=== PATIENT | female | born 1970 | race Caucasian/White ===

== ENCOUNTER 2017-07-29 22:17 | Inpatient (IN) | payer OTHER, MEDICARE ==
[2017-07-29] MEDS ORDERED: IPRATROPIUM/ALBUTEROL 0.5-2.5 MG/3 ML AMPUL NEB ONE ×3 (22:33→23:35)
[2017-07-29] MEDS ORDERED: METHYLPREDNISOLONE INJ 125 MG/2 ML SDV ONE (22:45)
[2017-07-29] MEDS ORDERED: NORMAL SALINE 1000 ML 1,000 ML IV PRN (22:49)
--- NOTE | 2017-07-29 22:56 | ER Document Report ---
ED Respiratory Problem - General Chief Complaint: Breathing Difficulty Stated Complaint: DIFFICULTY BREATHING Time Seen by Provider: 07/29/17 22:48 Mode of Arrival: Ambulatory Information source: Patient Notes: 47 years old female with a history of COPD, renal failure, presents today with difficulty in breathing progressively increased over the last 2 days, to the point that she could not take a good breath today and wheezing diffusely. Each time she lays down the breathing difficulty increase in intensity. Denied any fever chills or productive cough. Denies any other constitutional symptoms. TRAVEL OUTSIDE OF THE [place] IN LAST 30 DAYS: No - Related Data Allergies/Adverse Reactions: Sulfa (Sulfonamide Antibiotics) Allergy (Verified 07/29/17 22:20) Home Medications: Current Home Medications Albuterol Sulfate [Ventolin Hfa] 2 puff IH Q6HP PRN 07/30/17 [History] Amitriptyline HCl [Elavil 25 mg Tablet] 50 mg PO DAILY 07/30/17 [History] Clonazepam [Klonopin] 1 mg PO DAILY 07/30/17 [History] Duloxetine HCl [Cymbalta] 60 mg PO DAILY 07/30/17 [History] Gabapentin [Neurontin 300 mg Capsule] 300 mg PO Q8 07/30/17 [History] Mometasone/Formoterol [Dulera 200 Mcg/5 Mcg Inhaler] 2 puff IH BID 07/30/17 [ History] Montelukast Sodium [Singulair 10 mg Tablet] 10 mg PO QPM 07/30/17 [History] Topiramate [Topamax] 50 mg PO TID 07/30/17 [History] Past Medical History - General Information source: Patient - Social History Smoking Status: Smoker,Current Status Unk Family History: Reviewed & Not Pertinent Review of Systems - Review of Systems Notes: REVIEW OF SYSTEMS: CONSTITUTIONAL : Denies fever, chills, or sweats. Denies recent illness. EENT: Denies eye, ear, throat, or mouth pain or symptoms. Denies nasal or sinus congestion or discharge. Denies throat, tongue, or mouth swelling or difficulty swallowing. CARDIOVASCULAR: Denies chest pain. Denies palpitations or racing or irregular heart beat. Denies ankle edema. RESPIRATORY: As per history of complain GASTROINTESTINAL: Denies abdominal pain or distention. Denies nausea, vomiting , or diarrhea. Denies blood in vomitus, stools, or per rectum. Denies black, tarry stools. Denies constipation. GENITOURINARY: Denies difficulty urinating, painful urination, burning, frequency, blood in urine, or discharge. FEMALE GENITOURINARY: Denies vaginal bleeding, heavy or abnormal periods, irregular periods. Denies vaginal discharge or odor. MUSCULOSKELETAL: Denies back or neck pain or stiffness. Denies joint pain or swelling. SKIN: Denies rash, lesions or sores. HEMATOLOGIC : Denies easy bruising or bleeding. LYMPHATIC: Denies swollen, enlarged glands. NEUROLOGICAL: Denies confusion or altered mental status. Denies passing out or loss of consciousness. Denies dizziness or lightheadedness. Denies headache. Denies weakness or paralysis or loss of use of either side. Denies problems with gait or speech. Denies sensory loss, numbness, or tingling. Denies seizures. PSYCHIATRIC: Denies anxiety or stress. Denies depression, suicidal ideation, or homicidal ideation. ALL OTHER SYSTEMS REVIEWED AND NEGATIVE. PHYSICAL EXAMINATION: GENERAL: Seems to be in mild to moderate respiratory difficulty HEAD: Atraumatic, normocephalic. EYES: Pupils equal round and reactive to light, extraocular movements intact, conjunctiva are normal. ENT: Nares patent, oropharynx clear without exudates. Moist mucous membranes. NECK: Normal range of motion, supple without lymphadenopathy LUNGS: Bilaterally decreased breath sounds with diffuse expiratory wheeze no rales no other adventitial sounds HEART: Regular rate and rhythm without murmurs ABDOMEN: Soft, nontender, nondistended abdomen. No guarding, no rebound. No masses appreciated. Female : deferred Musculoskeletal: Normal range of motion, no pitting or edema. No cyanosis. NEUROLOGICAL: Cranial nerves grossly intact. Normal speech, normal gait. Normal sensory, motor exams PSYCH: Normal mood, normal affect. SKIN: Warm, Dry, normal turgor, no rashes or lesions noted. Dictation was performed using [employer] voice recognition software Physical Exam - Vital signs Vitals: Resp Pulse Ox 26 H 91 L 07/29/17 22:35 07/29/17 22:35 Course - Re-evaluation Re-evalutation: 07/30/17 00:28 Patient was informed of all the results, feeling little better than what she came in with. Dr. devlin was called and case was discussed with - Vital Signs Vital signs: Temp Pulse Resp BP Pulse Ox 97.5 F 94 20 117/65 96 07/31/17 15:27 07/31/17 16:34 07/31/17 16:34 07/31/17 15:27 07/31/17 16:34 - Laboratory Result Diagrams: 07/30/17 05:40 07/30/17 05:40 Laboratory results interpreted by me: 07/29/17 07/29/17 07/29/17 22:45 22:45 22:55 WBC 13.8 H Lymphocytes % 12.9 L Eosinophils % 6.2 H Absolute Neutrophils 10.3 H Absolute Eosinophils 0.8 H ABG pO2 53.3 L ABG O2 Saturation 87.7 L Est GFR (Non-Af Amer) 51 L - Diagnostic Test Radiology reviewed: Reports reviewed - Reported by radiologist as normal - EKG Interpretation by Me EKG shows normal: Sinus rhythm - 95 bpm normal axis no acute ST elevation ST depression T-wave inversion noted. Discharge - Discharge Clinical Impression: Acute exacerbation of COPD with asthma, Hypoxia Condition: Fair Disposition: ADMITTED INPATIENT Admitting Provider: [facility] Admitted: Telemetry
[2017-07-29 23:02] LABS: ABSOLUTE BASOPHILS # (AUTO) 0.1 10^3/uL (0.0-0.2); ABSOLUTE EOSINOPHILS # (AUTO) 0.8 10^3/uL (0.0-0.6); ABSOLUTE LYMPHOCYTES (AUTO) 1.8 10^3/uL (0.5-4.7); ABSOLUTE MONOCYTES (AUTO) 0.8 10^3/uL (0.1-1.4); ABSOLUTE NEUT (AUTO) 10.3 10^3/uL (1.7-8.2); BASOPHILS % (AUTO) 0.6 % (0-2); EOSINOPHILS % (AUTO) 6.2 % (0-6); HEMATOCRIT 44.4 % (36.0-47.0); LYMPHOCYTES % (AUTO) 12.9 % (13-45); MEAN CORPUSCULAR HEMOGLOBIN 31.9 pg (27.0-33.4); MEAN CORPUSCULAR HGB CONC 33.7 g/dL (32.0-36.0); MEAN CORPUSCULAR VOLUME 95 fl (80-97); MONOCYTES % (AUTO) 5.9 % (3-13); PLATELET COUNT 299 10^3/uL (150-450); RED BLOOD COUNT 4.69 10^6/uL (3.72-5.28); RED CELL DISTRIBUTION WIDTH 13.6 % (11.5-14.0); SEGMENTED NEUTROPHILS % (AUTO) 74.4 % (42-78); TOTAL CELLS COUNTED % (AUTO) 100 %; WHITE BLOOD COUNT 13.8 10^3/uL (4.0-10.5)
[2017-07-29 23:20] LABS: ALANINE AMINOTRANSFERASE 30 U/L (9-52); ALBUMIN 4.6 g/dL (3.5-5.0); ALKALINE PHOSPHATASE 97 U/L (38-126); ANION GAP 11 (5-19); ASPARTATE AMINO TRANSFERASE 21 U/L (14-36); BILIRUBIN,DIRECT 0.3 mg/dL (0.0-0.4); BILIRUBIN,TOTAL 0.4 mg/dL (0.2-1.3); BLOOD UREA NITROGEN 14 mg/dL (7-20); CALCIUM 9.7 mg/dL (8.4-10.2); CARBON DIOXIDE 28 mmol/L (22-30); CHLORIDE 103 mmol/L (98-107); GLUCOSE 93 mg/dL (75-110); POTASSIUM 3.7 mmol/L (3.6-5.0); SODIUM 141.6 mmol/L (137-145); TOTAL PROTEIN 7.5 g/dL (6.3-8.2)
[2017-07-29 23:21] LABS: ARTERIAL BLOOD BASE EXCESS -0.9 mmol/L; ARTERIAL BLOOD H2CO3 1.19 mmol/L (1.05-1.35); ARTERIAL BLOOD HCO3 23.8 mmol/L (20-26); ARTERIAL BLOOD O2 SATURATION 87.7 % (94-98); ARTERIAL BLOOD PCO2 39.6 mmHg (35-45); ARTERIAL BLOOD PO2 53.3 mmHg (80-100)
--- NOTE | 2017-07-29 23:25 | RADIOLOGY REPORT (SQ) ---
EXAM DESCRIPTION: CHEST SINGLE VIEW CLINICAL HISTORY: 47 years, Female, Shortness of breath COMPARISON: None. LIMITATIONS: None. FINDINGS: Hyperinflation, clear parenchyma, normal cardiac silhouette, and intact bony thorax. IMPRESSION: No acute cardiopulmonary findings. 2011 [employer]- All Rights Reserved
[2017-07-29 23:28] LABS: ARTERIAL BLOOD FIO2 RA
[2017-07-29] MEDS ORDERED: METHYLPREDNISOLONE INJ 125 MG/2 ML SDV IV ONE (23:35)
[2017-07-29] MEDS: MAGNESIUM SULFATE/D5W 1 GM/100 ML RTUPB IV SCH (23:41)
[2017-07-30] MEDS: MAGNESIUM SULFATE/D5W 1 GM/100 ML RTUPB IV SCH (00:16)
[2017-07-30] MEDS: IPRATROPIUM/ALBUTEROL 0.5-2.5 MG/3 ML AMPUL NEB SCH ×6 (03:52→23:37)
[2017-07-30] MEDS ORDERED: LEVOFLOXACIN 750 MG/D5W RTU 750 MG/150 ML RTUPB IV ONE (04:00)
[2017-07-30] MEDS: METHYLPREDNISOLONE INJ 125 MG/2 ML SDV IV SCH ×3 (05:36→21:16)
--- NOTE | 2017-07-30 06:02 | EKG REPORT ---
SEVERITY:- BORDERLINE ECG - SINUS RHYTHM PROBABLE LEFT ATRIAL ABNORMALITY BORDERLINE T WAVE ABNORMALITIES : Confirmed by: Cornell Magana MD 30-Jul-2017 06:02:08
[2017-07-30 06:03] LABS: HEMATOCRIT 41.1 % (36.0-47.0); HEMOGLOBIN 14.1 g/dL (12.0-15.5); MEAN CORPUSCULAR HEMOGLOBIN 32.1 pg (27.0-33.4); MEAN CORPUSCULAR HGB CONC 34.3 g/dL (32.0-36.0); MEAN CORPUSCULAR VOLUME 94 fl (80-97); PLATELET COUNT 259 10^3/uL (150-450); RED BLOOD COUNT 4.38 10^6/uL (3.72-5.28); RED CELL DISTRIBUTION WIDTH 13.7 % (11.5-14.0); WHITE BLOOD COUNT 11.4 10^3/uL (4.0-10.5)
[2017-07-30 06:20] LABS: ANION GAP 14 (5-19); BLOOD UREA NITROGEN 13 mg/dL (7-20); CALCIUM 9.4 mg/dL (8.4-10.2); CARBON DIOXIDE 25 mmol/L (22-30); CHLORIDE 107 mmol/L (98-107); GLUCOSE 159 mg/dL (75-110); SODIUM 145.5 mmol/L (137-145)
[2017-07-30 06:31] LABS: POTASSIUM 4.9 mmol/L (3.6-5.0)
[2017-07-30] MEDS ORDERED: ALBUTEROL SULFATE HFA (90 MCG/PUFF) 8 GM MDI (1 MDI/ER DISP) IH PRN (10:54)
[2017-07-30 11:06] LABS: ARTERIAL BLOOD BASE EXCESS -2.4 mmol/L; ARTERIAL BLOOD FIO2 5L; ARTERIAL BLOOD H2CO3 1.28 mmol/L (1.05-1.35); ARTERIAL BLOOD HCO3 23.1 mmol/L (20-26); ARTERIAL BLOOD PCO2 42.6 mmHg (35-45); ARTERIAL BLOOD PH 7.35 (7.35-7.45); ARTERIAL BLOOD TOTAL CO2 24.5 mmol/L (21-25)
--- NOTE | 2017-07-30 12:08 | PDOC H&P ---
History of Present Illness Admission Date/PCP: 07/30/17 00:41 WALESKA BONNER MD History of Present Illness: RAMSEY MYERS is a 47 year old female, she has history of severe persistent asthma/COPD, she continues to smoke despite very severe COPD, she came to the emergency room last night for evaluation of shortness of breath, in the emergency room she was wheezing, the respiratory symptoms could not be controlled. The arterial blood gas that was done, PO2 was 53 on room air. When patient arrived on the floor she supposedly had a seizure, she has a remote history of seizure the last time she had a seizure was about 2 years ago. Past Medical History Cardiac Medical History: Reports: Hyperlipidema Pulmonary Medical History: Reports: Asthma, Chronic Obstructive Pulmonary Disease (COPD) Psychiatric Medical History: Denies: Depression Past Surgical History Past Surgical History: Reports: Orthopedic Surgery - numerous orthopedic surgeries Social History Smoking Status: Current Every Day Smoker Frequency of Alcohol Use: None Hx Recreational Drug Use: No Drugs: None Hx Prescription Drug Abuse: No Family History Parental Family History Reviewed: Yes Children Family History Reviewed: Yes Sibling(s) Family History Reviewed.: Yes Medication/Allergy Home Medications: Albuterol Sulfate [Ventolin Hfa] 2 puff IH Q6HP PRN 07/30/17 Amitriptyline HCl [Elavil 25 mg Tablet] 50 mg PO DAILY 07/30/17 Clonazepam [Klonopin] 1 mg PO DAILY 07/30/17 Duloxetine HCl [Cymbalta] 60 mg PO DAILY 07/30/17 Gabapentin [Neurontin 300 mg Capsule] 300 mg PO Q8 07/30/17 Mometasone/Formoterol [Dulera 200 Mcg/5 Mcg Inhaler] 2 puff IH BID 07/30/17 Montelukast Sodium [Singulair 10 mg Tablet] 10 mg PO QPM 07/30/17 Topiramate [Topamax] 50 mg PO TID 07/30/17 Allergies/Adverse Reactions: Sulfa (Sulfonamide Antibiotics) Allergy (Verified 07/29/17 22:20) Review of Systems Constitutional: ABSENT: chills, fever(s), headache(s), weight gain, weight loss Eyes: ABSENT: visual disturbances Ears: ABSENT: hearing changes Cardiovascular: ABSENT: chest pain, dyspnea on exertion, edema, orthropnea, palpitations Respiratory: PRESENT: cough, dyspnea Gastrointestinal: ABSENT: abdominal pain, constipation, diarrhea, hematemesis, hematochezia, nausea, vomiting Genitourinary: ABSENT: dysuria, hematuria Musculoskeletal: ABSENT: joint swelling Integumentary: ABSENT: rash, wounds Neurological: ABSENT: abnormal gait, abnormal speech, confusion, dizziness, focal weakness, syncope Psychiatric: ABSENT: anxiety, depression, homidical ideation, suicidal ideation Endocrine: ABSENT: cold intolerance, heat intolerance, menstrual abnormalities, polydipsia, polyuria Hematologic/Lymphatic: ABSENT: easy bleeding, easy bruising, lymphadenopathy Physical Exam Vital Signs: Temp Pulse Resp BP Pulse Ox 97.8 F 89 18 112/65 95 07/30/17 07:50 07/30/17 11:58 07/30/17 11:58 07/30/17 07:50 07/30/17 11:58 Intake & Output 07/29/17 07/30/17 07/31/17 06:59 06:59 06:59 Intake Total 486 Balance 486 Weight 82.7 kg General appearance: PRESENT: mild distress Head exam: PRESENT: atraumatic, normocephalic Eye exam: PRESENT: conjunctiva pink, EOMI, PERRLA Ear exam: PRESENT: normal external ear exam Mouth exam: PRESENT: moist, tongue midline Neck exam: PRESENT: full ROM Respiratory exam: PRESENT: retraction, wheezes Cardiovascular exam: PRESENT: RRR, +S1, +S2 Pulses: PRESENT: normal dorsalis pedis pul, +2 pedal pulses bilateral Vascular exam: PRESENT: normal capillary refill GI/Abdominal exam: PRESENT: normal bowel sounds, soft Rectal exam: PRESENT: deferred Neurological exam: PRESENT: alert, awake, oriented to person, oriented to place , oriented to time, oriented to situation, CN II-XII grossly intact Psychiatric exam: PRESENT: appropriate affect, normal mood Skin exam: PRESENT: dry, intact, warm Results Laboratory Results: 07/30/17 05:40 07/30/17 05:40 07/30/17 07/30/17 07/30/17 05:40 05:40 10:50 WBC 11.4 H RBC 4.38 Hgb 14.1 Hct 41.1 MCV 94 MCH 32.1 MCHC 34.3 RDW 13.7 Plt Count 259 Carbonic Acid 1.28 HCO3/H2CO3 Ratio 18:1 ABG pH 7.35 ABG pCO2 42.6 ABG pO2 73.0 L ABG HCO3 23.1 ABG O2 Saturation 94.0 ABG Base Excess -2.4 FiO2 5L Sodium 145.5 H Potassium 4.9 D Chloride 107 Carbon Dioxide 25 Anion Gap 14 BUN 13 Creatinine 1.05 Est GFR ( Amer) > 60 Est GFR (Non-Af Amer) 56 L Glucose 159 H Calcium 9.4 Impressions: Chest X-Ray 07/29/17 22:48 IMPRESSION: No acute cardiopulmonary findings. 2010 [employer]- All Rights Reserved Assessment & Plan - Diagnosis (1) Acute hypoxemic respiratory failure Is this a current diagnosis for this admission?: Yes Plan: She is admitted to the hospital, started on oxygen via nasal cannula (2) Acute exacerbation of COPD with asthma Is this a current diagnosis for this admission?: Yes Plan: Start IV Solu-Medrol, bronchodilators.
[2017-07-30] MEDS: TOPIRAMATE 25 MG TABLET PO SCH ×2 (13:13→21:15)
[2017-07-30] MEDS: GABAPENTIN 300 MG CAPSULE PO SCH ×2 (13:13→21:15)
[2017-07-30] MEDS: ACETAMINOPHEN 325 MG TABLET PO PRN (14:16)
[2017-07-30] MEDS: MONTELUKAST SODIUM 10 MG TABLET PO SCH (17:41)
[2017-07-30] MEDS ORDERED: (PENDING PHARMACY ID) (Mometasone/Formoterol [Dulera 200 Mcg/5 Mcg Inhaler] 2 PUFF) IH SCH (18:00)
[2017-07-30] MEDS ORDERED: AMITRIPTYLINE HCL 25 MG TABLET PO SCH (22:00)
[2017-07-30] MEDS: DULOXETINE HCL 30 MG CAPSULE.DR PO SCH (23:03)
[2017-07-30] MEDS: CLONAZEPAM 1 MG TABLET PO SCH (23:04)
[2017-07-30] MEDS ORDERED: AMITRIPTYLINE HCL 50 MG TABLET ONE (23:13)
[2017-07-31] MEDS: IPRATROPIUM/ALBUTEROL 0.5-2.5 MG/3 ML AMPUL NEB SCH ×5 (04:17→19:35)
[2017-07-31] MEDS: TOPIRAMATE 25 MG TABLET PO SCH ×3 (05:42→21:04)
[2017-07-31] MEDS: GABAPENTIN 300 MG CAPSULE PO SCH ×3 (05:42→21:04)
[2017-07-31] MEDS: METHYLPREDNISOLONE INJ 125 MG/2 ML SDV IV SCH ×3 (05:43→21:04)
[2017-07-31] MEDS: ACETAMINOPHEN 325 MG TABLET PO PRN (05:44)
[2017-07-31] MEDS ORDERED: LEVOFLOXACIN 750 MG/D5W RTU 750 MG/150 ML RTUPB IV SCH (08:00)
[2017-07-31] MEDS: CEFEPIME 1 GM/D5W RTU 1 GM/50 ML RTUPB IV SCH ×2 (09:55→21:04)
[2017-07-31] MEDS: AZITHROMYCIN 250 MG TABLET PO SCH (09:56)
[2017-07-31] MEDS ORDERED: AMITRIPTYLINE HCL 25 MG TABLET PO SCH (10:00)
[2017-07-31] MEDS ORDERED: CLONAZEPAM 1 MG TABLET PO SCH (10:00)
[2017-07-31] MEDS ORDERED: DULOXETINE HCL 30 MG CAPSULE.DR PO SCH (10:00)
--- NOTE | 2017-07-31 13:27 | PDOC PROGRESS REPORT ---
Subjective Progress Note for:: 07/31/17 Subjective:: Patient is currently still doing fair pt still wheezing bilaterally and still complaining some short of breath pt was admitted because of the COPD with acute exacerbations Reason For Visit: COPD Physical Exam Vital Signs: Temp Pulse Resp BP Pulse Ox 97.5 F 89 18 101/57 L 98 07/31/17 11:32 07/31/17 13:00 07/31/17 13:00 07/31/17 11:32 07/31/17 13:00 Intake & Output 07/30/17 07/31/17 08/01/17 06:59 06:59 06:59 Intake Total 486 2838 473 Balance 486 2838 473 Weight 82.7 kg 83.6 kg General appearance: PRESENT: no acute distress, well-developed, well-nourished Head exam: PRESENT: atraumatic, normocephalic Eye exam: PRESENT: conjunctiva pink, EOMI, PERRLA. ABSENT: scleral icterus Ear exam: PRESENT: normal external ear exam Mouth exam: PRESENT: moist, tongue midline Neck exam: PRESENT: full ROM. ABSENT: carotid bruit, JVD, lymphadenopathy, thyromegaly Respiratory exam: PRESENT: decreased breath sounds, wheezes Cardiovascular exam: PRESENT: RRR. ABSENT: diastolic murmur, rubs, systolic murmur Pulses: PRESENT: normal dorsalis pedis pul, +2 pedal pulses bilateral Vascular exam: PRESENT: normal capillary refill GI/Abdominal exam: PRESENT: normal bowel sounds, soft. ABSENT: distended, guarding, mass, organolmegaly, rebound, tenderness Rectal exam: PRESENT: deferred Extremities exam: ABSENT: full ROM, left AKA, right AKA, left BKA, right BKA, calf tenderness, joint swelling, pedal edema, tenderness, other Neurological exam: PRESENT: alert, awake, oriented to person, oriented to place , oriented to time, oriented to situation, CN II-XII grossly intact. ABSENT: motor sensory deficit Psychiatric exam: PRESENT: appropriate affect, normal mood. ABSENT: homicidal ideation, suicidal ideation Skin exam: PRESENT: dry, intact, warm. ABSENT: cyanosis, rash Results Laboratory Results: 07/30/17 05:40 07/30/17 05:40 Impressions: Chest X-Ray 07/29/17 22:48 IMPRESSION: No acute cardiopulmonary findings. 2010 [employer]- All Rights Reserved Assessment & Plan - Diagnosis (1) Acute exacerbation of COPD with asthma Is this a current diagnosis for this admission?: Yes Plan: Continues IV Solu-Medrol and nebulizer treatments discussed with the patient is not ready to switch to the p.o. steroid (2) Acute hypoxemic respiratory failure Is this a current diagnosis for this admission?: Yes Plan: Currently still requiring oxygen's continues to monitor the patient's and continues to pulse ox and consult the pulmonary for further evaluations (3) Seizure disorder Is this a current diagnosis for this admission?: Yes Plan: Will DC the Levaquin and start the patient on the cefepime (4) Chronic kidney disease Qualifiers: Chronic kidney disease stage: stage 2 (mild) Qualified Code(s): N18.2 - Chronic kidney disease, stage 2 (mild) Is this a current diagnosis for this admission?: Yes Plan: Currently all stable - Time Time Spent with patient: 15-24 minutes Medications reviewed and adjusted accordingly: Yes Anticipated discharge: Home Within: Other - Inpatient Certification Medical Necessity: Need Close Monitoring Due to Risk of Patient Decompensation, Need For IV Fluids, Need for IV Antibiotics Post Hospital Care: D/C [employer] Documentation - Plan Summary Plan Summary: Continues to current medications
[2017-07-31] MEDS: MONTELUKAST SODIUM 10 MG TABLET PO SCH (17:02)
--- NOTE | 2017-07-31 19:29 | PDOC CONSULTATION ---
Consultation Consult Date: 07/31/17 Attending physician:: WALESKA BONNER Consult reason:: dyspnea History of Present Illness Admission Date/PCP: 07/30/17 00:41 WALESKA BONNER MD History of Present Illness: RAMSEY MYERS is a 47 year old female, she has history of severe persistent asthma/COPD, she continues to smoke despite very severe COPD, she came to the emergency room last night for evaluation of shortness of breath, in the emergency room she was wheezing, the respiratory symptoms could not be controlled. The arterial blood gas that was done, PO2 was 53 on room air. She has >40 pach /year /hx and admits to exsposure to large amounts of passive smoke as a child and adolescent,She has 2 small dogs and denies recent travel.She continues to smoke up until admission. Past Medical History Cardiac Medical History: Reports: Hyperlipidema Pulmonary Medical History: Reports: Asthma, Chronic Obstructive Pulmonary Disease (COPD), Respiratory Failure EENT Medical History: Denies: Ears, Nose, Throat Neurological Medical History: Denies: Migraine, Multiple Sclerosis Endocrine Medical History: Denies: Diabetes Mellitus Type 1, Gestational Diabetes, Obesity Renal/ Medical History: Denies: Nephrolithiasis GI Medical History: Denies: Crohn's Disease, Ulcerative Colitis Musculoskeltal Medical History: Denies: Gout Psychiatric Medical History: Reports: General Anxiety Disorder, Tobacco Dependency Denies: Depression Traumatic Medical History: Denies: Traumatic Brain Injury Hematology: Denies: Sickle Cell Disease, Bleeding Tendencies Infectious Medical History: Denies: Hepatitis B, Hepatitis C Past Surgical History Past Surgical History: Reports: Appendectomy, Hysterectomy, Orthopedic Surgery - numerous orthopedic surgeries Social History Information Source: Patient, [facility] Records Lives with: Family Smoking Status: Current Every Day Smoker Cigarettes Packs Per Day: 2 Number of Years Smokin Last Time Smoked: 24 hrs Passive smoke exposure as: Both Frequency of Alcohol Use: None Hx Recreational Drug Use: No Drugs: None Hx Prescription Drug Abuse: No Do you have pets?: Yes Have you had any respiratory illnesses as a child?: No Have you been exposed to any sick contacts recently?: No Have you had any recent respiratory illnesses?: No Have you travelled outside of [place] in the past 12 months?: No Family History Family History: DM, Malignancy Parental Family History Reviewed: Yes Children Family History Reviewed: Yes Sibling(s) Family History Reviewed.: Yes Medication/Allergy Home Medications: Albuterol Sulfate [Ventolin Hfa] 2 puff IH Q6HP PRN 07/30/17 Amitriptyline HCl [Elavil 25 mg Tablet] 50 mg PO DAILY 07/30/17 Clonazepam [Klonopin] 1 mg PO DAILY 07/30/17 Duloxetine HCl [Cymbalta] 60 mg PO DAILY 07/30/17 Gabapentin [Neurontin 300 mg Capsule] 300 mg PO Q8 07/30/17 Mometasone/Formoterol [Dulera 200 Mcg/5 Mcg Inhaler] 2 puff IH BID 07/30/17 Montelukast Sodium [Singulair 10 mg Tablet] 10 mg PO QPM 07/30/17 Topiramate [Topamax] 50 mg PO TID 07/30/17 Allergies/Adverse Reactions: Sulfa (Sulfonamide Antibiotics) Allergy (Verified 07/29/17 22:20) Review of Systems Constitutional: PRESENT: anorexia, weight loss. ABSENT: chills, fatigue, fever( s), headache(s), night sweats, weight gain Eyes: ABSENT: visual disturbances Ears: ABSENT: hearing changes Nose, Mouth, and Throat: ABSENT: mouth pain, sore throat Cardiovascular: PRESENT: dyspnea on exertion, edema, orthropnea. ABSENT: palpitations Respiratory: PRESENT: cough, dyspnea Gastrointestinal: ABSENT: abdominal pain, bloating, coffee ground emesis, dysphagia, hematemesis, hematochezia, melena, nausea, vomiting Genitourinary: PRESENT: nocturia. ABSENT: difficulty urinating, dysuria, hematuria Musculoskeletal: ABSENT: deformity, joint swelling Integumentary: ABSENT: pruritus, rash Neurological: ABSENT: abnormal movements, abnormal speech, confusion, focal weakness, frequent falls, lack of coordination, memory loss Psychiatric: PRESENT: anxiety. ABSENT: hallucinations, homidical ideation, suicidal ideation Endocrine: ABSENT: cold intolerance, heat intolerance, menstrual abnormalities Hematologic/Lymphatic: PRESENT: easy bruising Physical Exam Vital Signs: Temp Pulse Resp BP Pulse Ox 97.8 F 98 20 112/60 97 07/31/17 07:14 07/31/17 08:38 07/31/17 08:38 07/31/17 07:14 07/31/17 08:38 Intake & Output 07/30/17 07/31/17 08/01/17 06:59 06:59 06:59 Intake Total 486 2838 Balance 486 2838 Weight 82.7 kg 83.6 kg General appearance: PRESENT: no acute distress, cooperative, disheveled, thin. ABSENT: hard of hearing, mild distress, morbidly obese, obese, severe distress Head exam: PRESENT: atraumatic, normocephalic Eye exam: PRESENT: conjunctiva pale, EOMI. ABSENT: conjunctival injection, conjunctiva pink, nystagmus, periorbital swelling, scleral icterus Mouth exam: PRESENT: dry mucosa, tongue midline Teeth exam: PRESENT: poor dentation Neck exam: ABSENT: carotid bruit, JVD, lymphadenopathy, thyromegaly, tracheal deviation, tracheostomy Respiratory exam: PRESENT: decreased breath sounds, prolonged expiratory phas, rales, rhonchi, symmetrical, unlabored, wheezes. ABSENT: retraction, stridor, tachypnea Cardiovascular exam: PRESENT: RRR, +S1, +S2. ABSENT: rubs Pulses: PRESENT: normal radial pulses GI/Abdominal exam: PRESENT: normal bowel sounds, soft. ABSENT: distended, guarding, mass, organolmegaly, rebound, tenderness Extremities exam: ABSENT: clubbing, joint swelling Musculoskeletal exam: ABSENT: deformity, dislocation Neurological exam: PRESENT: alert, awake Psychiatric exam: PRESENT: normal mood Skin exam: PRESENT: dry, warm Results Laboratory Results: 07/30/17 05:40 07/30/17 05:40 07/30/17 10:50 Carbonic Acid 1.28 HCO3/H2CO3 Ratio 18:1 ABG pH 7.35 ABG pCO2 42.6 ABG pO2 73.0 L ABG HCO3 23.1 ABG O2 Saturation 94.0 ABG Base Excess -2.4 FiO2 5L Impressions: Chest X-Ray 07/29/17 22:48 IMPRESSION: No acute cardiopulmonary findings. 2010 [employer]- All Rights Reserved Assessment & Plan - Diagnosis (1) Acute exacerbation of COPD with asthma Is this a current diagnosis for this admission?: Yes Plan: Generic Name Dose Route Start Last Admin Trade Name Freq PRN Reason Stop Dose Admin Patient Own Medication 2 puff 07/30/17 18:00 Mometasone/Formoterol [Dulera 200 Mcg/5 Mcg Inhaler] IH 08/29/17 17:59 BID [facility] Methylprednisolone Sodium Succinate 125 mg 07/30/17 22:00 07/31/17 05:43 Solu-Medrol Inj/Pf 125 Mg/2 Ml Sdv IV 08/29/17 21:59 125 mg Q8 PURA Clonazepam 1 mg 07/30/17 22:00 07/30/17 23:04 Klonopin 1 Mg Tablet PO 08/06/17 21:59 1 mg QHS PURA Albuterol 2 puff 07/30/17 11:40 Proair Hfa Inhalation Aerosol 8.5 Gm Mdi IH 08/29/17 11:39 Q6HP PRN SHORTNESS OF BREATH Albuterol/Ipratropium 3 ml 07/30/17 04:00 07/31/17 08:38 Duoneb 3 Ml Ampul NEB 08/29/17 03:59 3 ml RTQ4 PURA Montelukast Sodium 10 mg 07/30/17 18:00 07/30/17 17:41 Singulair 10 Mg Tablet PO 08/29/17 17:59 10 mg QPM PURA (2) Acute hypoxemic respiratory failure Is this a current diagnosis for this admission?: Yes Plan: Labs- All tests 24 hr 07/29/17 07/30/17 22:55 10:50 ABG pH 7.40 7.35 ABG pCO2 39.6 42.6 ABG pO2 53.3 L 73.0 L FiO2 RA 5L (4) Seizure disorder Is this a current diagnosis for this admission?: Yes Plan: w/o seiz x 2 yrs
[2017-07-31] MEDS: DULOXETINE HCL 30 MG CAPSULE.DR PO SCH (21:04)
[2017-07-31] MEDS: CLONAZEPAM 1 MG TABLET PO SCH (21:04)
[2017-07-31] MEDS: AMITRIPTYLINE HCL 50 MG TABLET PO SCH (21:04)
[2017-08-01] MEDS: IPRATROPIUM/ALBUTEROL 0.5-2.5 MG/3 ML AMPUL NEB SCH ×6 (00:27→20:13)
[2017-08-01 05:11] LABS: HEMOGLOBIN 12.9 g/dL (12.0-15.5); MEAN CORPUSCULAR HEMOGLOBIN 31.5 pg (27.0-33.4); MEAN CORPUSCULAR VOLUME 95 fl (80-97); PLATELET COUNT 286 10^3/uL (150-450); RED BLOOD COUNT 4.09 10^6/uL (3.72-5.28)
[2017-08-01 05:16] LABS: WHITE BLOOD COUNT 29.1 10^3/uL (4.0-10.5)
[2017-08-01 05:30] LABS: ANION GAP 9 (5-19); BLOOD UREA NITROGEN 16 mg/dL (7-20); CALCIUM 9.5 mg/dL (8.4-10.2); CARBON DIOXIDE 27 mmol/L (22-30); CHLORIDE 109 mmol/L (98-107); GLUCOSE 128 mg/dL (75-110); POTASSIUM 5.2 mmol/L (3.6-5.0); SODIUM 145.4 mmol/L (137-145)
[2017-08-01] MEDS: TOPIRAMATE 25 MG TABLET PO SCH ×3 (05:39→21:48)
[2017-08-01] MEDS: GABAPENTIN 300 MG CAPSULE PO SCH ×3 (05:39→21:48)
[2017-08-01] MEDS: METHYLPREDNISOLONE INJ 125 MG/2 ML SDV IV SCH (05:39)
[2017-08-01 05:49] LABS: ABSOLUTE LYMPHOCYTES# (MANUAL) 0.6 10^3/uL (0.5-4.7); ABSOLUTE NEUTROPHILS# (MANUAL) 28.5 10^3/uL (1.7-8.2); BAND NEUTROPHILS % (MANUAL) 1 % (3-5); BASOPHILS % (MANUAL) 0 % (0-2); EOSINOPHILS % (MANUAL) 0 % (0-6); LYMPHOCYTES % (MANUAL) 2 % (13-45); MONOCYTES % (MANUAL) 0 % (3-13); SEGMENTED NEUTROPHILS % (MAN) 97 % (42-78); TOTAL CELLS COUNTED 100
[2017-08-01 05:51] LABS: HYPERSEGMENTED NEUTROPHILS PRESENT; PLATELET COMMENT ADEQUATE; POIKILOCYTOSIS 1+; STOMATOCYTES 1+
[2017-08-01] MEDS ORDERED: METHYLPREDNISOLONE INJ 125 MG/2 ML SDV IV ONE (07:45)
[2017-08-01] MEDS: CEFEPIME 1 GM/D5W RTU 1 GM/50 ML RTUPB IV SCH ×2 (09:46→21:56)
[2017-08-01] MEDS: ALBUTEROL SULFATE HFA (90 MCG/PUFF) 200 PUFF/8.5 GM MDI IH PRN (09:46)
[2017-08-01] MEDS: AZITHROMYCIN 250 MG TABLET PO SCH (09:46)
--- NOTE | 2017-08-01 10:51 | PDOC PROGRESS REPORT ---
Subjective Progress Note for:: 08/01/17 Subjective:: Sorry I get frustrated easily Reason For Visit: COPD Physical Exam Vital Signs: Temp Pulse Resp BP Pulse Ox 97.9 F 88 18 102/48 L 97 08/01/17 07:45 08/01/17 07:45 08/01/17 07:45 08/01/17 07:45 08/01/17 07:45 Intake & Output 07/31/17 08/01/17 08/02/17 06:59 06:59 06:59 Intake Total 2838 1654 Balance 2838 1654 Weight 83.6 kg General appearance: PRESENT: no acute distress, cooperative, disheveled, obese, well-developed. ABSENT: mild distress, morbidly obese, severe distress, thin Head exam: PRESENT: atraumatic, normocephalic Eye exam: PRESENT: conjunctiva pale, EOMI. ABSENT: conjunctival injection, conjunctiva pink, nystagmus, periorbital swelling, scleral icterus Mouth exam: PRESENT: moist, neck supple, tongue midline. ABSENT: dry mucosa, laceration Neck exam: ABSENT: carotid bruit, JVD, lymphadenopathy, thyromegaly, tracheal deviation, tracheostomy Respiratory exam: PRESENT: rales, rhonchi, symmetrical, unlabored, wheezes. ABSENT: accessory muscle use, chest wall tenderness, clear to auscultation luz, crackles, decreased breath sounds, prolonged expiratory phas, retraction, stridor, tachypnea Cardiovascular exam: PRESENT: RRR, +S1, +S2. ABSENT: irregular rhythm, rubs Pulses: PRESENT: normal radial pulses - [id number] GI/Abdominal exam: PRESENT: normal bowel sounds, soft. ABSENT: distended, guarding, mass, organolmegaly, rebound, tenderness Extremities exam: ABSENT: clubbing, joint swelling Musculoskeletal exam: PRESENT: ambulatory. ABSENT: deformity, dislocation Neurological exam: PRESENT: alert, awake Psychiatric exam: PRESENT: anxious Skin exam: PRESENT: dry, warm Results Laboratory Results: 08/01/17 04:48 08/01/17 04:48 08/01/17 08/01/17 04:48 04:48 WBC 29.1 H D RBC 4.09 Hgb 12.9 Hct 39.0 MCV 95 MCH 31.5 MCHC 33.0 RDW 14.0 Plt Count 286 Seg Neutrophils % Not Reportable Lymphocytes % Not Reportable Monocytes % Not Reportable Eosinophils % Not Reportable Basophils % Not Reportable Absolute Neutrophils Not Reportable Absolute Lymphocytes Not Reportable Absolute Monocytes Not Reportable Absolute Eosinophils Not Reportable Absolute Basophils Not Reportable Sodium 145.4 H Potassium 5.2 H Chloride 109 H Carbon Dioxide 27 Anion Gap 9 BUN 16 Creatinine 1.07 Est GFR ( Amer) > 60 Est GFR (Non-Af Amer) 55 L Glucose 128 H Calcium 9.5 Impressions: Chest X-Ray 07/29/17 22:48 IMPRESSION: No acute cardiopulmonary findings. 2010 [email or web address]- All Rights Reserved Assessment & Plan - Diagnosis (1) Acute exacerbation of COPD with asthma Is this a current diagnosis for this admission?: Yes Plan: Abnormal breath sounds persist however increased air movement over the last 24 hours (2) Acute hypoxemic respiratory failure Is this a current diagnosis for this admission?: Yes Plan: Continues to require supplemental O2 complains of dyspnea going to the bathroom will initiate continuous pulse oximetry for 24-48 hours (3) Hypoxia Is this a current diagnosis for this admission?: Yes (4) Seizure disorder Is this a current diagnosis for this admission?: Yes Plan: w/o seiz x 2 yrs
--- NOTE | 2017-08-01 11:00 | RADIOLOGY REPORT (SQ) ---
EXAM DESCRIPTION: CHEST PA/LAT COMPLETED DATE/TIME: 08/01/2017 10:52 am REASON FOR STUDY: sob COMPARISON: 07/29/2017. EXAM PARAMETERS: NUMBER OF VIEWS: two views TECHNIQUE: Digital Frontal and Lateral radiographic views of the chest acquired. RADIATION DOSE: NA LIMITATIONS: none FINDINGS: LUNGS AND PLEURA: No opacities, masses or pneumothorax. No pleural effusion. MEDIASTINUM AND HILAR STRUCTURES: No masses or contour abnormalities. HEART AND VASCULAR STRUCTURES: Heart normal size. No evidence for failure. BONES: No acute findings. HARDWARE: None in the chest. OTHER: No other significant finding. IMPRESSION: NO SIGNIFICANT RADIOGRAPHIC FINDING IN THE CHEST. TECHNICAL DOCUMENTATION: JOB ID: [id number] [email or web address]- All Rights Reserved
--- NOTE | 2017-08-01 12:19 | Physician Advisory Note ---
Physician Advisor ProgressNote .: Pursuant to the plan for [facility], I have reviewed the medical record for this patient. Physician Advisor Statement: Please consider documenting, if you agree: 1. "Acute Hypoxemic Respiratory Failure, evidenced by labored breathing/ tachycardia/tachypnea in ED, with pO2 52." [Need to document the s/s supporting this dx - & include that info in DCSummary, so auditors can't say it wasn't present.] 2. ? - "Mild Acute hypernatremia, suspect due to " (intravascular volume depletion due to decreased intake due to respiratory distress/failure?) Thanks! CK
--- NOTE | 2017-08-01 13:07 | PDOC PROGRESS REPORT ---
Subjective Progress Note for:: 08/01/17 Subjective:: Patient is currently doing fair Patient's denied any chest pain pt still complaining of a cough Patients do not like to wear the oxygens Patient's white count is elevated today but patient does not have any fever Reason For Visit: COPD Physical Exam Vital Signs: Temp Pulse Resp BP Pulse Ox 98.5 F 95 16 119/65 94 08/01/17 11:55 08/01/17 12:37 08/01/17 12:37 08/01/17 11:55 08/01/17 12:37 Pulse Oximeter Continuous Start: 08/01/17 10: 43 Freq: RTQ4 Status: Active Document 08/01/17 11:15 TPO (Rec: 08/01/17 11:15 TPO [email or web address]) Pulse Oximetry Assessment Oxygen Saturation (92-100) 93 Oxygen Flow Rate (L/min) 3 Oxygen Delivery Method Nasal Cannula Fraction of Inspired Oxygen (FIO2) 32 Equipment Usage Initial Set Up Continuous Pulse Oximeter 24 Hour Charge Charge Now Continuous SpO2 Machine # 9 Intake & Output 07/31/17 08/01/17 08/02/17 06:59 06:59 06:59 Intake Total 2838 1654 Balance 2838 1654 Weight 83.6 kg General appearance: PRESENT: no acute distress, well-developed, well-nourished Head exam: PRESENT: atraumatic, normocephalic Eye exam: PRESENT: conjunctiva pink, EOMI, PERRLA. ABSENT: scleral icterus Ear exam: PRESENT: normal external ear exam Mouth exam: PRESENT: moist, tongue midline Neck exam: PRESENT: full ROM. ABSENT: carotid bruit, JVD, lymphadenopathy, thyromegaly Respiratory exam: PRESENT: wheezes Cardiovascular exam: PRESENT: RRR. ABSENT: diastolic murmur, rubs, systolic murmur Pulses: PRESENT: normal dorsalis pedis pul, +2 pedal pulses bilateral Vascular exam: PRESENT: normal capillary refill GI/Abdominal exam: PRESENT: normal bowel sounds, soft. ABSENT: distended, guarding, mass, organolmegaly, rebound, tenderness Rectal exam: PRESENT: deferred Extremities exam: ABSENT: pedal edema Neurological exam: PRESENT: alert, awake, oriented to person, oriented to place , oriented to time, oriented to situation, CN II-XII grossly intact. ABSENT: motor sensory deficit Psychiatric exam: PRESENT: appropriate affect, normal mood. ABSENT: homicidal ideation, suicidal ideation Skin exam: PRESENT: dry, intact, warm. ABSENT: cyanosis, rash Results Laboratory Results: 08/01/17 04:48 08/01/17 04:48 08/01/17 08/01/17 04:48 04:48 WBC 29.1 H D RBC 4.09 Hgb 12.9 Hct 39.0 MCV 95 MCH 31.5 MCHC 33.0 RDW 14.0 Plt Count 286 Seg Neutrophils % Not Reportable Lymphocytes % Not Reportable Monocytes % Not Reportable Eosinophils % Not Reportable Basophils % Not Reportable Absolute Neutrophils Not Reportable Absolute Lymphocytes Not Reportable Absolute Monocytes Not Reportable Absolute Eosinophils Not Reportable Absolute Basophils Not Reportable Sodium 145.4 H Potassium 5.2 H Chloride 109 H Carbon Dioxide 27 Anion Gap 9 BUN 16 Creatinine 1.07 Est GFR ( Amer) > 60 Est GFR (Non-Af Amer) 55 L Glucose 128 H Calcium 9.5 Impressions: Chest X-Ray 08/01/17 00:00 IMPRESSION: NO SIGNIFICANT RADIOGRAPHIC FINDING IN THE CHEST. Assessment & Plan - Diagnosis (1) Acute exacerbation of COPD with asthma Is this a current diagnosis for this admission?: Yes Plan: Decrease the IV steroid continues to nebulizer treatments and follow with pulmonary (2) Acute hypoxemic respiratory failure Is this a current diagnosis for this admission?: Yes (3) Seizure disorder Is this a current diagnosis for this admission?: Yes Plan: Will DC the Levaquin and start the patient on the cefepime (4) Chronic kidney disease Qualifiers: Chronic kidney disease stage: stage 2 (mild) Qualified Code(s): N18.2 - Chronic kidney disease, stage 2 (mild) Is this a current diagnosis for this admission?: Yes Plan: Low potassium in the diet repeat the potassium in the morning discussed with the nursing staff taking care of the patient and discussed with the patient about also (5) Leukocytosis Qualifiers: Leukocytosis type: unspecified Qualified Code(s): D72.829 - Elevated white blood cell count, unspecified Is this a current diagnosis for this admission?: Yes Plan: Patient is currently afebrile and a chest x-ray is all clear most likely related to the steroid induced leukocytosis will reduce the dose of steroids and continues to monitor and discussed with the patient about the all the test reports - Time Time Spent with patient: 15-24 minutes Medications reviewed and adjusted accordingly: Yes Anticipated discharge: Home Within: Other - Inpatient Certification Medical Necessity: Need Close Monitoring Due to Risk of Patient Decompensation, Need for IV Antibiotics Post Hospital Care: D/C Rehabilitation Medicine Physician Documentation - Plan Summary Plan Summary: Decrease the IV steroid continues to IV antibiotic low potassium in diet repeat the blood work in the morning discussed with the patient about all the test reports and try to wean her from the oxygens
[2017-08-01] MEDS ORDERED: METHYLPREDNISOLONE INJ 125 MG/2 ML SDV IV SCH ×2 (14:00)
[2017-08-01] MEDS: METHYLPREDNISOLONE INJ 40 MG/1 ML SDV IV SCH ×2 (14:48→21:48)
[2017-08-01] MEDS: MAG HYDROX/AL HYDROX/SIMETH SUSP 30 ML UDCUP PO PRN ×2 (17:35→23:29)
[2017-08-01] MEDS: MONTELUKAST SODIUM 10 MG TABLET PO SCH (17:35)
[2017-08-01] MEDS ORDERED: NICOTINE 21 MG/24 HR PATCH.TD24 TD PRN (20:43)
[2017-08-01] MEDS: GUAIFENESIN 600 MG TABLET.SA PO SCH (21:48)
[2017-08-01] MEDS: DULOXETINE HCL 30 MG CAPSULE.DR PO SCH (21:48)
[2017-08-01] MEDS: AMITRIPTYLINE HCL 50 MG TABLET PO SCH (21:48)
[2017-08-01] MEDS: CLONAZEPAM 1 MG TABLET PO SCH (21:48)
[2017-08-02] MEDS: IPRATROPIUM/ALBUTEROL 0.5-2.5 MG/3 ML AMPUL NEB SCH ×6 (00:27→19:34)
[2017-08-02 05:05] LABS: HEMATOCRIT 38.6 % (36.0-47.0); HEMOGLOBIN 12.5 g/dL (12.0-15.5); MEAN CORPUSCULAR HEMOGLOBIN 31.2 pg (27.0-33.4); MEAN CORPUSCULAR HGB CONC 32.5 g/dL (32.0-36.0); MEAN CORPUSCULAR VOLUME 96 fl (80-97); PLATELET COUNT 268 10^3/uL (150-450); RED BLOOD COUNT 4.01 10^6/uL (3.72-5.28); RED CELL DISTRIBUTION WIDTH 14.2 % (11.5-14.0); WHITE BLOOD COUNT 26.4 10^3/uL (4.0-10.5)
[2017-08-02 05:20] LABS: ANION GAP 10 (5-19); BLOOD UREA NITROGEN 17 mg/dL (7-20); CALCIUM 9.4 mg/dL (8.4-10.2); CARBON DIOXIDE 26 mmol/L (22-30); CHLORIDE 108 mmol/L (98-107); GLUCOSE 135 mg/dL (75-110); MAGNESIUM 2.3 mg/dL (1.6-2.3); POTASSIUM 4.4 mmol/L (3.6-5.0); SODIUM 143.9 mmol/L (137-145)
[2017-08-02 05:23] LABS: ABSOLUTE LYMPHOCYTES# (MANUAL) 1.6 10^3/uL (0.5-4.7); ABSOLUTE MONOCYTES # (MANUAL) 0.5 10^3/uL (0.1-1.4); ABSOLUTE NEUTROPHILS# (MANUAL) 24.3 10^3/uL (1.7-8.2); BAND NEUTROPHILS % (MANUAL) 1 % (3-5); BASOPHILS % (MANUAL) 0 % (0-2); EOSINOPHILS % (MANUAL) 0 % (0-6); LYMPHOCYTES % (MANUAL) 6 % (13-45); MONOCYTES % (MANUAL) 2 % (3-13); SEGMENTED NEUTROPHILS % (MAN) 91 % (42-78); TOTAL CELLS COUNTED 100
[2017-08-02 05:24] LABS: TOXIC GRANULATION 1+; TOXIC VACUOLATION PRESENT
[2017-08-02 05:25] LABS: PLATELET COMMENT ADEQUATE; RBC MORPHOLOGY COMMENT NORMO-CYTIC/CHROMIC
[2017-08-02] MEDS: TOPIRAMATE 25 MG TABLET PO SCH ×3 (05:28→21:01)
[2017-08-02] MEDS: GABAPENTIN 300 MG CAPSULE PO SCH ×3 (05:28→21:01)
[2017-08-02] MEDS: METHYLPREDNISOLONE INJ 40 MG/1 ML SDV IV SCH ×3 (05:28→21:01)
--- NOTE | 2017-08-02 09:20 | PDOC PROGRESS REPORT ---
Subjective Progress Note for:: 08/02/17 Subjective:: Patient is feeling same Patient still still coughing Patient's denied any short of breath while resting but every time patient's move patient's oxygen saturations drop Patient's denied any chest pain Reason For Visit: COPD Physical Exam Vital Signs: Temp Pulse Resp BP Pulse Ox 97.9 F 89 18 129/71 H 96 08/02/17 08:24 08/02/17 08:24 08/02/17 08:24 08/02/17 08:24 08/02/17 08:24 Pulse Oximeter Continuous Start: 08/01/17 10: 43 Freq: RTQ4 Status: Active Document 08/02/17 04:45 SFL (Rec: 08/02/17 05:39 SFL [email or web address]) Pulse Oximetry Assessment Oxygen Saturation (92-100) 95 Oxygen Flow Rate (L/min) 3 Oxygen Delivery Method Nasal Cannula Equipment Usage Equipment in Use Continuous SpO2 Machine # 9 Intake & Output 08/01/17 08/02/17 08/03/17 06:59 06:59 06:59 Intake Total 1654 2214 Balance 1654 2214 Weight 83.8 kg General appearance: PRESENT: no acute distress, well-developed, well-nourished Head exam: PRESENT: atraumatic, normocephalic Eye exam: PRESENT: conjunctiva pink, EOMI, PERRLA. ABSENT: scleral icterus Ear exam: PRESENT: normal external ear exam Mouth exam: PRESENT: moist, tongue midline Neck exam: PRESENT: full ROM. ABSENT: carotid bruit, JVD, lymphadenopathy, thyromegaly Respiratory exam: PRESENT: wheezes Cardiovascular exam: PRESENT: RRR. ABSENT: diastolic murmur, rubs, systolic murmur Pulses: PRESENT: normal dorsalis pedis pul, +2 pedal pulses bilateral Vascular exam: PRESENT: normal capillary refill GI/Abdominal exam: PRESENT: normal bowel sounds, soft. ABSENT: distended, guarding, mass, organolmegaly, rebound, tenderness Rectal exam: PRESENT: deferred Extremities exam: ABSENT: full ROM, left AKA, right AKA, left BKA, right BKA, calf tenderness, joint swelling, pedal edema, tenderness, other Musculoskeletal exam: PRESENT: ambulatory Neurological exam: PRESENT: alert, awake, oriented to person, oriented to place , oriented to time, oriented to situation, CN II-XII grossly intact. ABSENT: motor sensory deficit Psychiatric exam: PRESENT: appropriate affect, normal mood. ABSENT: homicidal ideation, suicidal ideation Skin exam: PRESENT: dry, intact, warm. ABSENT: cyanosis, rash Results Laboratory Results: 08/02/17 04:31 08/02/17 04:31 08/02/17 08/02/17 04:31 04:31 WBC 26.4 H RBC 4.01 Hgb 12.5 Hct 38.6 MCV 96 MCH 31.2 MCHC 32.5 RDW 14.2 H Plt Count 268 Seg Neutrophils % Not Reportable Lymphocytes % Not Reportable Monocytes % Not Reportable Eosinophils % Not Reportable Basophils % Not Reportable Absolute Neutrophils Not Reportable Absolute Lymphocytes Not Reportable Absolute Monocytes Not Reportable Absolute Eosinophils Not Reportable Absolute Basophils Not Reportable Sodium 143.9 Potassium 4.4 Chloride 108 H Carbon Dioxide 26 Anion Gap 10 BUN 17 Creatinine 0.88 Est GFR ( Amer) > 60 Est GFR (Non-Af Amer) > 60 Glucose 135 H Calcium 9.4 Magnesium 2.3 Impressions: Chest X-Ray 08/01/17 00:00 IMPRESSION: NO SIGNIFICANT RADIOGRAPHIC FINDING IN THE CHEST. Assessment & Plan - Diagnosis (1) Acute exacerbation of COPD with asthma Is this a current diagnosis for this admission?: Yes Plan: Decrease the IV steroid continues to nebulizer treatments and follow with pulmonary (2) Acute hypoxemic respiratory failure Is this a current diagnosis for this admission?: Yes Plan: Will get the CTA to rule out other etiology (3) Seizure disorder Is this a current diagnosis for this admission?: Yes Plan: Will DC the Levaquin and start the patient on the cefepime (4) Chronic kidney disease Qualifiers: Chronic kidney disease stage: stage 2 (mild) Qualified Code(s): N18.2 - Chronic kidney disease, stage 2 (mild) Is this a current diagnosis for this admission?: Yes Plan: Low potassium in the diet repeat the potassium in the morning discussed with the nursing staff taking care of the patient and discussed with the patient about also (5) Leukocytosis Qualifiers: Leukocytosis type: unspecified Qualified Code(s): D72.829 - Elevated white blood cell count, unspecified Is this a current diagnosis for this admission?: Yes Plan: Is all coming down - Time Time Spent with patient: 15-24 minutes Medications reviewed and adjusted accordingly: Yes Anticipated discharge: Home Within: Other - Inpatient Certification Based on my medical assessment, after consideration of the patient's comorbidities, presenting symptoms, or acuity I expect that the services needed warrant INPATIENT care.: Yes I certify that my determination is in accordance with my understanding of Medicare's requirements for reasonable and necessary INPATIENT services [42 CFR 412.3e].: Yes Medical Necessity: Need Close Monitoring Due to Risk of Patient Decompensation, Need for IV Antibiotics Post Hospital Care: 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
[2017-08-02] MEDS: AZITHROMYCIN 250 MG TABLET PO SCH (10:58)
[2017-08-02] MEDS: GUAIFENESIN 600 MG TABLET.SA PO SCH ×2 (10:58→21:01)
[2017-08-02] MEDS: CEFEPIME 1 GM/D5W RTU 1 GM/50 ML RTUPB IV SCH ×2 (10:58→21:01)
--- NOTE | 2017-08-02 12:46 | PDOC PROGRESS REPORT ---
Subjective Progress Note for:: 08/02/17 Subjective:: Remains anxious but breathing is somewhat better Reason For Visit: COPD Physical Exam Vital Signs: Temp Pulse Resp BP Pulse Ox 97.9 F 89 18 129/71 H 96 08/02/17 08:24 08/02/17 08:24 08/02/17 08:24 08/02/17 08:24 08/02/17 08:24 Pulse Oximeter Continuous Start: 08/01/17 10: 43 Freq: RTQ4 Status: Active Document 08/02/17 04:45 SFL (Rec: 08/02/17 05:39 SFL [email or web address]) Pulse Oximetry Assessment Oxygen Saturation (92-100) 95 Oxygen Flow Rate (L/min) 3 Oxygen Delivery Method Nasal Cannula Equipment Usage Equipment in Use Continuous SpO2 Machine # 9 Intake & Output 08/01/17 08/02/17 08/03/17 06:59 06:59 06:59 Intake Total 1654 2214 Balance 1654 2214 Weight 83.8 kg General appearance: PRESENT: no acute distress, cooperative, disheveled, obese. ABSENT: mild distress, morbidly obese, severe distress, thin Head exam: PRESENT: atraumatic, normocephalic Eye exam: PRESENT: conjunctiva pale, EOMI, periorbital swelling, scleral icterus. ABSENT: conjunctival injection, conjunctiva pink, nystagmus Mouth exam: PRESENT: moist, neck supple, tongue midline Neck exam: ABSENT: carotid bruit, JVD, lymphadenopathy, thyromegaly, tracheal deviation, tracheostomy Respiratory exam: PRESENT: crackles, decreased breath sounds, prolonged expiratory phas, rhonchi, symmetrical, unlabored, wheezes. ABSENT: accessory muscle use, chest wall tenderness, clear to auscultation luz, rales, retraction , stridor, tachypnea Cardiovascular exam: PRESENT: RRR, +S1, +S2 Pulses: PRESENT: normal radial pulses GI/Abdominal exam: PRESENT: normal bowel sounds, soft. ABSENT: distended, guarding, mass, organolmegaly, rebound, tenderness Extremities exam: ABSENT: clubbing, joint swelling Musculoskeletal exam: PRESENT: full ROM. ABSENT: deformity, dislocation Neurological exam: PRESENT: alert, awake Psychiatric exam: PRESENT: flat affect Skin exam: PRESENT: dry, warm Results Laboratory Results: 08/02/17 04:31 08/02/17 04:31 08/02/17 08/02/17 04:31 04:31 WBC 26.4 H RBC 4.01 Hgb 12.5 Hct 38.6 MCV 96 MCH 31.2 MCHC 32.5 RDW 14.2 H Plt Count 268 Seg Neutrophils % Not Reportable Lymphocytes % Not Reportable Monocytes % Not Reportable Eosinophils % Not Reportable Basophils % Not Reportable Absolute Neutrophils Not Reportable Absolute Lymphocytes Not Reportable Absolute Monocytes Not Reportable Absolute Eosinophils Not Reportable Absolute Basophils Not Reportable Sodium 143.9 Potassium 4.4 Chloride 108 H Carbon Dioxide 26 Anion Gap 10 BUN 17 Creatinine 0.88 Est GFR ( Amer) > 60 Est GFR (Non-Af Amer) > 60 Glucose 135 H Calcium 9.4 Magnesium 2.3 Impressions: Chest X-Ray 08/01/17 00:00 IMPRESSION: NO SIGNIFICANT RADIOGRAPHIC FINDING IN THE CHEST. Assessment & Plan - Diagnosis (1) Acute exacerbation of COPD with asthma Is this a current diagnosis for this admission?: Yes Plan: Improving increase breath sound over the last 24 hours (2) Acute hypoxemic respiratory failure Is this a current diagnosis for this admission?: Yes Plan: SaO2 96% 2 L nasal cannula (3) Hypoxia Is this a current diagnosis for this admission?: Yes (4) Seizure disorder Is this a current diagnosis for this admission?: Yes Plan: w/o seiz x 2 yrs
[2017-08-02] MEDS: BENZONATATE 100 MG CAPSULE PO SCH ×2 (13:42→17:53)
--- NOTE | 2017-08-02 13:46 | RADIOLOGY REPORT (SQ) ---
EXAM DESCRIPTION: CTA CHEST COMPLETED DATE/TIME: 08/02/2017 12:55 pm REASON FOR STUDY: hypoxia/sob COMPARISON: Chest x-ray dated 08/01/2017. TECHNIQUE: CT scan of the chest performed using helical scanning technique with dynamic intravenous contrast injection. Images reviewed with lung, soft tissue and bone windows. Reconstructed coronal and sagittal MPR images reviewed. Additional 3 dimensional post-processing performed to develop Maximal Intensity Projection images ([place] P). All images stored on PACS. All CT scanners at this facility use dose modulation, iterative reconstruction, and/or weight based d osing when appropriate to reduce radiation dose to as low as reasonably achievable (ALARA). [facility]: Dose Right [facility]: CareDose [facility]: Dose Right [facility]: Teradose 4D [facility]: Touchtalent CONTRAST TYPE AND DOSE: contrast/concentration: Isovue 370.00 mg/ml; Total Contrast Delivered: 73.0 ml; Total Saline Delivered: 80.1 ml Contrast bolus adequate for pulmonary arteries and aorta. RENAL FUNCTION: BUN 17 creatinine 0.88. RADIATION DOSE: CT Rad equipment meets quality standard of care and radiation dose reduction techniq ues were employed. CTDIvol: 14.3 - 16.5 mGy. DLP: 580 mGy-cm. . LIMITATIONS: None. FINDINGS: LUNGS AND PLEURA: There are a few scattered hazy parenchymal opacities. No masses, infilt rates, pneumothorax. No pleural effusions, calcifications. AORTA AND GREAT VESSELS: No aneurysm. Contrast bolus not optimized for the aorta. HEART: No pericardial effusion. No significant coronary artery calcifications. PULMONARY ARTERIES: No emboli visualized in the main pulmonary arteries or the segmental branches. HILAR AND MEDIASTINAL STRUCTURES: No identified masses or abnormal nodes. HARDWARE: None in the chest. UPPER ABDOMEN: No significant findings. Limited exam. THYROID AND OTHER SOFT TISSUES: No masses. No adenopathy. BONES: No acute or significant finding. 3D MIPS: Confirm above findings. OTHER: No other significant finding. IMPRESSION: NORMAL CTA OF THE CHEST. NO PULMONARY EMBOLI. THERE ARE A FEW SCATTERED HAZY PARENCHYMAL OPACITIES. THESE ARE NONSPECIFIC AND COULD BE DUE TO ATEL ECTASIS OR PNEUMONITIS. COMMENT: Quality ID # [id number]: Final reports with documentation of one or more dose reduction techniques (e.g., Automated exposure control, adjustment of the mA and/or kV according to patient size, use of iterative reconstruction technique) TECHNICAL DOCUMENTATION: JOB ID: [id number] [employer] [place]- All Rights Reserved
[2017-08-02] MEDS: MONTELUKAST SODIUM 10 MG TABLET PO SCH (17:55)
[2017-08-02] MEDS: AMITRIPTYLINE HCL 50 MG TABLET PO SCH (21:01)
[2017-08-02] MEDS: CLONAZEPAM 1 MG TABLET PO SCH (21:01)
[2017-08-02] MEDS: DULOXETINE HCL 30 MG CAPSULE.DR PO SCH (21:01)
[2017-08-03] MEDS: IPRATROPIUM/ALBUTEROL 0.5-2.5 MG/3 ML AMPUL NEB SCH ×6 (00:31→19:49)
[2017-08-03] MEDS: METHYLPREDNISOLONE INJ 40 MG/1 ML SDV IV SCH (05:15)
[2017-08-03] MEDS: GABAPENTIN 300 MG CAPSULE PO SCH ×3 (05:15→21:20)
[2017-08-03] MEDS: TOPIRAMATE 25 MG TABLET PO SCH ×3 (05:15→21:25)
[2017-08-03 05:21] LABS: ANION GAP 9 (5-19); BLOOD UREA NITROGEN 15 mg/dL (7-20); CALCIUM 9.5 mg/dL (8.4-10.2); CARBON DIOXIDE 30 mmol/L (22-30); CHLORIDE 106 mmol/L (98-107); GLUCOSE 128 mg/dL (75-110); SODIUM 145.1 mmol/L (137-145)
[2017-08-03 05:51] LABS: HEMATOCRIT 39.8 % (36.0-47.0); HEMOGLOBIN 13.1 g/dL (12.0-15.5); MEAN CORPUSCULAR HEMOGLOBIN 31.6 pg (27.0-33.4); MEAN CORPUSCULAR VOLUME 96 fl (80-97); PLATELET COUNT 258 10^3/uL (150-450); RED BLOOD COUNT 4.16 10^6/uL (3.72-5.28); RED CELL DISTRIBUTION WIDTH 14.1 % (11.5-14.0); WHITE BLOOD COUNT 19.1 10^3/uL (4.0-10.5)
[2017-08-03 05:52] LABS: ABSOLUTE MONOCYTES # (MANUAL) 0.6 10^3/uL (0.1-1.4); ABSOLUTE NEUTROPHILS# (MANUAL) 17.6 10^3/uL (1.7-8.2); BAND NEUTROPHILS % (MANUAL) 3 % (3-5); BASOPHILS % (MANUAL) 0 % (0-2); EOSINOPHILS % (MANUAL) 0 % (0-6); LYMPHOCYTES % (MANUAL) 1 % (13-45); MONOCYTES % (MANUAL) 3 % (3-13); PLATELET COMMENT ADEQUATE; RBC MORPHOLOGY COMMENT NORMO-CYTIC/CHROMIC; SEGMENTED NEUTROPHILS % (MAN) 89 % (42-78); TOTAL CELLS COUNTED 100; TOXIC GRANULATION 1+; TOXIC VACUOLATION PRESENT
--- NOTE | 2017-08-03 09:37 | ST Inp Modified Barium Swallow ---
Medical Diagnosis - ICD-10 Tx Diagnosis Coding (1) Acute exacerbation of COPD with asthma ICD-10 Code(s): J44.1 - CHRONIC OBSTRUCTIVE PULMONARY DISEASE W (ACUTE) EXACERBATION; J45.901 - UNSPECIFIED ASTHMA WITH (ACUTE) EXACERBATION Inpatient [facility] [place] - General Date: 08/03/17 Date of Onset: 07/27/17 - per patient - History History Obtained From: Patient Medications: Medications Reviewed Allergies: Refer to medical record - sulfa allergy - Subjective Current Nutritional Means: PO Current PO Diet: Regular Current Symptoms: Coughing Pain: 4/5 - Objective Assessment: Upright, Left Lateral - Food Trials Food Trials Used: Thin liquids, Pureed, Regular The Patient: Was Able to Self Feed - Assessment Labial Function: Within Normal Limits Lingual Function: Within Normal Limits Mandibular Function: Within Normal Limits Dentition: Partial Velo-Pharyngeal Function: Not assessed Laryngeal Function: Volitional Cough, Volitional Swallow - Pharyngeal Stage Initiation of Pharyngeal Stage: Normal Decreased Laryngeal Elevation: No Reduced Velo-Pharyngeal Closure: no Reduced Pressure Generation: No Reduced Tongue Base Retraction: No Pre-Swallowing Pooling in Valleculae: None Pre-Swallowing Pooling in Pyriforms: None Reduced Thyro-Hyiod Approximation: No Reduced Epiglottic Excursion: No Reduced Pharyngeal Peristalsis: No Multiple Swallows With: Effective - Reflexive secondary swallow with pudding and kulwant cracker which cleared residue Post Swallow Residuals in Valleculae: None Post Swallow Residuals in Pyriforms: None Post Swallow Residuals: tongue-base - cleared with reflexive secondary swallow - Esophageal Stage Cricophageal Function: Normal Upper Esophageal Transit: Normal - Impression/Summary Laryngeal Penetration: No Tracheal Aspiration: no Patient Presents With: Normal swallow at eval Risk of Aspiration: Minimal - WNL - Recommendations NPO: no Solid Diet Recommendations: Regular Liquid Diet Recommendations: Thin Regular Diet: Yes Dysphagia Therapy with LEADLIGHTER: No Recommended Techniques: Fully Upright During Meal Supervision: Independent - Time Total Time: 15 Total Timed Minutes: 15
[2017-08-03] MEDS: CEFEPIME 1 GM/D5W RTU 1 GM/50 ML RTUPB IV SCH (09:58)
[2017-08-03] MEDS: GUAIFENESIN 600 MG TABLET.SA PO SCH ×2 (09:58→21:28)
[2017-08-03] MEDS: BENZONATATE 100 MG CAPSULE PO SCH ×3 (09:58→17:51)
[2017-08-03] MEDS: AZITHROMYCIN 250 MG TABLET PO SCH (09:58)
--- NOTE | 2017-08-03 12:25 | PDOC PROGRESS REPORT ---
Subjective Progress Note for:: 08/03/17 Subjective:: Patient is currently doing fair patient's denied any chest pain still complaining of a cough Patient CT angiogram is negative for any PE Still requiring 3 L oxygens Reason For Visit: COPD Physical Exam Vital Signs: Temp Pulse Resp BP Pulse Ox 97.9 F 96 18 116/71 97 08/03/17 07:52 08/03/17 08:31 08/03/17 08:31 08/03/17 07:52 08/03/17 08:31 Pulse Oximeter Continuous Start: 08/01/17 10: 43 Freq: RTQ4 Status: Active Document 08/03/17 08:31 LDA (Rec: 08/03/17 11:23 LDA [email or web address]) Pulse Oximetry Assessment Oxygen Saturation (92-100) 97 Oxygen Flow Rate (L/min) 3 Oxygen Delivery Method Nasal Cannula Equipment Usage Equipment in Use Continuous SpO2 Machine # [id number] Intake & Output 08/02/17 08/03/17 08/04/17 06:59 06:59 06:59 Intake Total 2214 1359 Balance 2214 1359 Weight 83.8 kg 86.4 kg General appearance: PRESENT: no acute distress, well-developed, well-nourished Head exam: PRESENT: atraumatic, normocephalic Eye exam: PRESENT: conjunctiva pink, EOMI, PERRLA. ABSENT: scleral icterus Ear exam: PRESENT: normal external ear exam Mouth exam: PRESENT: moist, tongue midline Neck exam: PRESENT: full ROM. ABSENT: carotid bruit, JVD, lymphadenopathy, thyromegaly Respiratory exam: PRESENT: clear to auscultation luz Cardiovascular exam: PRESENT: RRR. ABSENT: diastolic murmur, rubs, systolic murmur Pulses: PRESENT: normal dorsalis pedis pul, +2 pedal pulses bilateral Vascular exam: PRESENT: normal capillary refill GI/Abdominal exam: PRESENT: normal bowel sounds, soft. ABSENT: distended, guarding, mass, organolmegaly, rebound, tenderness Rectal exam: PRESENT: deferred Extremities exam: ABSENT: full ROM, left AKA, right AKA, left BKA, right BKA, calf tenderness, joint swelling, pedal edema, tenderness, other Neurological exam: PRESENT: alert, awake, oriented to person, oriented to place , oriented to time, oriented to situation, CN II-XII grossly intact. ABSENT: motor sensory deficit Psychiatric exam: PRESENT: appropriate affect, normal mood. ABSENT: homicidal ideation, suicidal ideation Skin exam: PRESENT: dry, intact, warm. ABSENT: cyanosis, rash Results Laboratory Results: 08/03/17 04:46 08/03/17 04:46 08/03/17 08/03/17 04:46 04:46 WBC 19.1 H RBC 4.16 Hgb 13.1 Hct 39.8 MCV 96 MCH 31.6 MCHC 33.0 RDW 14.1 H Plt Count 258 Seg Neutrophils % Not Reportable Lymphocytes % Not Reportable Monocytes % Not Reportable Eosinophils % Not Reportable Basophils % Not Reportable Absolute Neutrophils Not Reportable Absolute Lymphocytes Not Reportable Absolute Monocytes Not Reportable Absolute Eosinophils Not Reportable Absolute Basophils Not Reportable Sodium 145.1 H Potassium 5.0 Chloride 106 Carbon Dioxide 30 Anion Gap 9 BUN 15 Creatinine 0.91 Est GFR ( Amer) > 60 Est GFR (Non-Af Amer) > 60 Glucose 128 H Calcium 9.5 Impressions: Chest X-Ray 08/01/17 00:00 IMPRESSION: NO SIGNIFICANT RADIOGRAPHIC FINDING IN THE CHEST. Chest/Abdomen CTA 08/02/17 00:00 IMPRESSION: NORMAL CTA OF THE CHEST. NO PULMONARY EMBOLI. THERE ARE A FEW SCATTERED HAZY PARENCHYMAL OPACITIES. THESE ARE NONSPECIFIC AND COULD BE DUE TO ATELECTASIS OR PNEUMONITIS. Assessment & Plan - Diagnosis (1) Acute exacerbation of COPD with asthma Is this a current diagnosis for this admission?: Yes Plan: Currently all get improving will DC the IV Solu-Medrol started the p.o. prednisone continues to nebulizer and try to wean her from the oxygens (2) Acute hypoxemic respiratory failure Is this a current diagnosis for this admission?: Yes Plan: Currently all stable most likely from COPD follow with the pulmonary (3) Seizure disorder Is this a current diagnosis for this admission?: Yes Plan: Will DC the Levaquin and start the patient on the cefepime (4) Chronic kidney disease Qualifiers: Chronic kidney disease stage: stage 2 (mild) Qualified Code(s): N18.2 - Chronic kidney disease, stage 2 (mild) Is this a current diagnosis for this admission?: Yes Plan: Low potassium in the diet repeat the potassium in the morning discussed with the nursing staff taking care of the patient and discussed with the patient about also (5) Leukocytosis Qualifiers: Leukocytosis type: unspecified Qualified Code(s): D72.829 - Elevated white blood cell count, unspecified Is this a current diagnosis for this admission?: Yes Plan: Also coming down most likely from the steroid - Time Time Spent with patient: 15-24 minutes Medications reviewed and adjusted accordingly: Yes Anticipated discharge: Home Within: within 48 hours - Inpatient Certification Medical Necessity: Need Close Monitoring Due to Risk of Patient Decompensation - Plan Summary Plan Summary: DC the all IV medications start the patient on the p.o. antibiotic and the p.o. steroid
--- NOTE | 2017-08-03 12:34 | PDOC PROGRESS REPORT ---
Subjective Progress Note for:: 08/03/17 Subjective:: Without complaints at this time Reason For Visit: COPD Physical Exam Vital Signs: Temp Pulse Resp BP Pulse Ox 97.9 F 96 18 116/71 97 08/03/17 07:52 08/03/17 08:31 08/03/17 08:31 08/03/17 07:52 08/03/17 08:31 Pulse Oximeter Continuous Start: 08/01/17 10: 43 Freq: RTQ4 Status: Active Document 08/03/17 08:31 LDA (Rec: 08/03/17 11:23 LDA [email or web address]) Pulse Oximetry Assessment Oxygen Saturation (92-100) 97 Oxygen Flow Rate (L/min) 3 Oxygen Delivery Method Nasal Cannula Equipment Usage Equipment in Use Continuous SpO2 Machine # [id number] Intake & Output 08/02/17 08/03/17 08/04/17 06:59 06:59 06:59 Intake Total 2214 1359 Balance 2214 1359 Weight 83.8 kg 86.4 kg General appearance: PRESENT: no acute distress, cooperative, well-developed. ABSENT: disheveled, hard of hearing, mild distress, morbidly obese, obese, severe distress, thin Head exam: PRESENT: atraumatic, normocephalic Eye exam: PRESENT: conjunctiva pale, EOMI. ABSENT: conjunctival injection, conjunctiva pink, nystagmus, periorbital swelling, scleral icterus Mouth exam: PRESENT: moist, neck supple, tongue midline Neck exam: ABSENT: carotid bruit, JVD, lymphadenopathy, thyromegaly, tracheal deviation, tracheostomy Respiratory exam: PRESENT: crackles, decreased breath sounds, prolonged expiratory phas, rhonchi, symmetrical, unlabored, wheezes. ABSENT: accessory muscle use, chest wall tenderness, clear to auscultation luz, rales, retraction , stridor, tachypnea Cardiovascular exam: PRESENT: RRR, +S1, +S2 Pulses: PRESENT: normal radial pulses GI/Abdominal exam: PRESENT: normal bowel sounds, soft. ABSENT: distended, guarding, mass, organolmegaly, rebound, tenderness Extremities exam: ABSENT: clubbing, joint swelling Musculoskeletal exam: PRESENT: ambulatory. ABSENT: deformity, dislocation Neurological exam: PRESENT: alert, awake Psychiatric exam: PRESENT: flat affect Skin exam: PRESENT: dry, warm Results Laboratory Results: 08/03/17 04:46 08/03/17 04:46 08/03/17 08/03/17 04:46 04:46 WBC 19.1 H RBC 4.16 Hgb 13.1 Hct 39.8 MCV 96 MCH 31.6 MCHC 33.0 RDW 14.1 H Plt Count 258 Seg Neutrophils % Not Reportable Lymphocytes % Not Reportable Monocytes % Not Reportable Eosinophils % Not Reportable Basophils % Not Reportable Absolute Neutrophils Not Reportable Absolute Lymphocytes Not Reportable Absolute Monocytes Not Reportable Absolute Eosinophils Not Reportable Absolute Basophils Not Reportable Sodium 145.1 H Potassium 5.0 Chloride 106 Carbon Dioxide 30 Anion Gap 9 BUN 15 Creatinine 0.91 Est GFR ( Amer) > 60 Est GFR (Non-Af Amer) > 60 Glucose 128 H Calcium 9.5 Impressions: Chest X-Ray 08/01/17 00:00 IMPRESSION: NO SIGNIFICANT RADIOGRAPHIC FINDING IN THE CHEST. Chest/Abdomen CTA 08/02/17 00:00 IMPRESSION: NORMAL CTA OF THE CHEST. NO PULMONARY EMBOLI. THERE ARE A FEW SCATTERED HAZY PARENCHYMAL OPACITIES. THESE ARE NONSPECIFIC AND COULD BE DUE TO ATELECTASIS OR PNEUMONITIS. Assessment & Plan - Diagnosis (1) Acute exacerbation of COPD with asthma Is this a current diagnosis for this admission?: Yes Plan: Improving (2) Acute hypoxemic respiratory failure Is this a current diagnosis for this admission?: Yes Plan: weaning O2 SaO2 on 2 L 95% at rest (3) Hypoxia Is this a current diagnosis for this admission?: Yes (4) Seizure disorder Is this a current diagnosis for this admission?: Yes Plan: w/o seiz x 2 yrs
[2017-08-03] MEDS: CEPHALEXIN 500 MG CAPSULE PO SCH ×2 (13:56→21:22)
[2017-08-03] MEDS: ACETAMINOPHEN 325 MG TABLET PO PRN (13:59)
[2017-08-03] MEDS: PREDNISONE 20 MG TABLET PO SCH (17:51)
[2017-08-03] MEDS: MONTELUKAST SODIUM 10 MG TABLET PO SCH (17:51)
[2017-08-03] MEDS: DULOXETINE HCL 30 MG CAPSULE.DR PO SCH (21:21)
[2017-08-03] MEDS: CLONAZEPAM 1 MG TABLET PO SCH (21:21)
[2017-08-03] MEDS: AMITRIPTYLINE HCL 50 MG TABLET PO SCH (21:21)
[2017-08-03] MEDS: GUAIFENESIN SYRP 200 MG/10 ML UDC PO PRN (21:24)
[2017-08-03] MEDS: ALBUTEROL SULFATE HFA (90 MCG/PUFF) 200 PUFF/8.5 GM MDI IH PRN (21:32)
[2017-08-04] MEDS: IPRATROPIUM/ALBUTEROL 0.5-2.5 MG/3 ML AMPUL NEB SCH ×6 (00:19→20:18)
[2017-08-04 05:14] LABS: HEMATOCRIT 39.5 % (36.0-47.0); HEMOGLOBIN 13.2 g/dL (12.0-15.5); MEAN CORPUSCULAR HEMOGLOBIN 31.8 pg (27.0-33.4); MEAN CORPUSCULAR HGB CONC 33.5 g/dL (32.0-36.0); MEAN CORPUSCULAR VOLUME 95 fl (80-97); PLATELET COUNT 233 10^3/uL (150-450); RED BLOOD COUNT 4.15 10^6/uL (3.72-5.28); RED CELL DISTRIBUTION WIDTH 13.8 % (11.5-14.0); WHITE BLOOD COUNT 15.6 10^3/uL (4.0-10.5)
[2017-08-04 05:23] LABS: ANION GAP 11 (5-19); BLOOD UREA NITROGEN 18 mg/dL (7-20); CALCIUM 8.8 mg/dL (8.4-10.2); CARBON DIOXIDE 27 mmol/L (22-30); CHLORIDE 105 mmol/L (98-107); GLUCOSE 102 mg/dL (75-110); POTASSIUM 4.2 mmol/L (3.6-5.0); SODIUM 143.4 mmol/L (137-145)
[2017-08-04 05:32] LABS: ABSOLUTE LYMPHOCYTES# (MANUAL) 1.6 10^3/uL (0.5-4.7); ABSOLUTE MONOCYTES # (MANUAL) 1.4 10^3/uL (0.1-1.4); ABSOLUTE NEUTROPHILS# (MANUAL) 12.6 10^3/uL (1.7-8.2); BAND NEUTROPHILS % (MANUAL) 3 % (3-5); BASOPHILS % (MANUAL) 0 % (0-2); EOSINOPHILS % (MANUAL) 0 % (0-6); LYMPHOCYTES % (MANUAL) 9 % (13-45); METAMYELOCYTES % (MANUAL) 1 % (0); MONOCYTES % (MANUAL) 9 % (3-13); SEGMENTED NEUTROPHILS % (MAN) 77 % (42-78); TOTAL CELLS COUNTED 100
[2017-08-04 05:33] LABS: PLATELET COMMENT ADEQUATE; RBC MORPHOLOGY COMMENT NORMO-CYTIC/CHROMIC; TOXIC GRANULATION 1+; TOXIC VACUOLATION PRESENT
[2017-08-04] MEDS: TOPIRAMATE 25 MG TABLET PO SCH ×3 (06:37→22:46)
[2017-08-04] MEDS: CEPHALEXIN 500 MG CAPSULE PO SCH ×3 (06:37→22:48)
[2017-08-04] MEDS: GABAPENTIN 300 MG CAPSULE PO SCH ×3 (06:37→22:47)
[2017-08-04] MEDS: BENZONATATE 100 MG CAPSULE PO SCH ×3 (09:10→17:10)
[2017-08-04] MEDS: AZITHROMYCIN 250 MG TABLET PO SCH (09:10)
[2017-08-04] MEDS: PREDNISONE 20 MG TABLET PO SCH ×2 (09:11→17:10)
[2017-08-04] MEDS: GUAIFENESIN 600 MG TABLET.SA PO SCH ×2 (09:11→22:49)
[2017-08-04] MEDS: ACETAMINOPHEN 325 MG TABLET PO PRN (12:39)
[2017-08-04] MEDS: MONTELUKAST SODIUM 10 MG TABLET PO SCH (17:11)
[2017-08-04] MEDS ORDERED: IPRATROPIUM/ALBUTEROL 120 PUFF/4 GM MDI IH PRN (18:48)
--- NOTE | 2017-08-04 18:57 | PDOC PROGRESS REPORT ---
Subjective Progress Note for:: 08/04/17 Subjective:: Patient reported persistent shortness of breath and worsening dyspnea with minimal exertion. She continue to have unproductive coughing. She denied chest pain. No nausea, vomiting, or abdominal pain. No reported fever or chills. Reason For Visit: COPD Physical Exam Vital Signs: Temp Pulse Resp BP Pulse Ox 97.5 F 79 18 128/73 H 94 08/04/17 12:31 08/04/17 16:15 08/04/17 16:15 08/04/17 12:31 08/04/17 16:15 Pulse Oximeter Continuous Start: 08/01/17 10: 43 Freq: RTQ4 Status: Active Document 08/04/17 16:15 LDA (Rec: 08/04/17 16:31 LDA [email or web address]) Pulse Oximetry Assessment Oxygen Saturation (92-100) 94 Oxygen Flow Rate (L/min) 2 Oxygen Delivery Method Nasal Cannula Equipment Usage Equipment in Use Continuous SpO2 Machine # [id number] Intake & Output 08/03/17 08/04/17 08/05/17 06:59 06:59 06:59 Intake Total 1359 1390 610 Balance 1359 1390 610 Weight 86.4 kg 85.7 kg General appearance: PRESENT: no acute distress, well-developed, well-nourished Head exam: PRESENT: atraumatic, normocephalic Eye exam: PRESENT: conjunctiva pink, EOMI, PERRLA. ABSENT: scleral icterus Mouth exam: PRESENT: moist Respiratory exam: PRESENT: decreased breath sounds, rhonchi - expiratory phase Cardiovascular exam: PRESENT: RRR. ABSENT: diastolic murmur, rubs, systolic murmur GI/Abdominal exam: PRESENT: normal bowel sounds, soft. ABSENT: distended, guarding, mass, organolmegaly, rebound, tenderness Extremities exam: ABSENT: pedal edema Musculoskeletal exam: PRESENT: normal inspection Neurological exam: PRESENT: alert, awake, oriented to person, oriented to place , oriented to time, oriented to situation, CN II-XII grossly intact. ABSENT: motor sensory deficit Psychiatric exam: PRESENT: appropriate affect, normal mood. ABSENT: homicidal ideation, suicidal ideation Skin exam: PRESENT: dry, intact, warm. ABSENT: cyanosis, rash Results Laboratory Results: 08/04/17 04:03 08/04/17 04:03 08/04/17 08/04/17 04:03 04:03 WBC 15.6 H RBC 4.15 Hgb 13.2 Hct 39.5 MCV 95 MCH 31.8 MCHC 33.5 RDW 13.8 Plt Count 233 Seg Neutrophils % Not Reportable Lymphocytes % Not Reportable Monocytes % Not Reportable Eosinophils % Not Reportable Basophils % Not Reportable Absolute Neutrophils Not Reportable Absolute Lymphocytes Not Reportable Absolute Monocytes Not Reportable Absolute Eosinophils Not Reportable Absolute Basophils Not Reportable Sodium 143.4 Potassium 4.2 Chloride 105 Carbon Dioxide 27 Anion Gap 11 BUN 18 Creatinine 0.87 Est GFR ( Amer) > 60 Est GFR (Non-Af Amer) > 60 Glucose 102 Calcium 8.8 Impressions: Chest X-Ray 08/01/17 00:00 IMPRESSION: NO SIGNIFICANT RADIOGRAPHIC FINDING IN THE CHEST. Chest/Abdomen CTA 08/02/17 00:00 IMPRESSION: NORMAL CTA OF THE CHEST. NO PULMONARY EMBOLI. THERE ARE A FEW SCATTERED HAZY PARENCHYMAL OPACITIES. THESE ARE NONSPECIFIC AND COULD BE DUE TO ATELECTASIS OR PNEUMONITIS. Assessment & Plan - Diagnosis (1) Acute exacerbation of chronic obstructive pulmonary disease (COPD) Is this a current diagnosis for this admission?: Yes Plan: D/C ProAir. Start on Spiriva Handihaler 18 mcg 1 cap IH daily. Start on Combivent Respimat 1 IH q6 hours prn for wheezing and SOB. Maintain on all other current medication management. (2) Acute hypoxemic respiratory failure Is this a current diagnosis for this admission?: Yes Plan: Continue supplemental oxygen therapy via nasal cannula. See covering attending physician orders. (3) Seizure disorder Is this a current diagnosis for this admission?: Yes Plan: See covering attending physician orders. - Time Time Spent with patient: 25-34 minutes Medications reviewed and adjusted accordingly: Yes Anticipated discharge: Home Within: Other - Inpatient Certification Based on my medical assessment, after consideration of the patient's comorbidities, presenting symptoms, or acuity I expect that the services needed warrant INPATIENT care.: Yes I certify that my determination is in accordance with my understanding of Medicare's requirements for reasonable and necessary INPATIENT services [42 CFR 412.3e].: Yes Medical Necessity: Need Close Monitoring Due to Risk of Patient Decompensation, Need For Continuous Telemetry Monitoring, Need for Nebulizer Therapy and Monitoring of Response, Need for IV Antibiotics, Risk of Complication if Not Cared For in Hospital Post Hospital Care: D/C Trucker Hand Documentation - Plan Summary Plan Summary: See covering attending physician orders.
[2017-08-04] MEDS: GUAIFENESIN SYRP 200 MG/10 ML UDC PO PRN (22:46)
[2017-08-04] MEDS: AMITRIPTYLINE HCL 50 MG TABLET PO SCH (22:47)
[2017-08-04] MEDS: DULOXETINE HCL 30 MG CAPSULE.DR PO SCH (22:48)
[2017-08-04] MEDS: CLONAZEPAM 1 MG TABLET PO SCH (22:48)
[2017-08-05] MEDS: IPRATROPIUM/ALBUTEROL 0.5-2.5 MG/3 ML AMPUL NEB SCH ×6 (00:38→20:00)
[2017-08-05 06:16] LABS: ANION GAP 8 (5-19); BLOOD UREA NITROGEN 16 mg/dL (7-20); CALCIUM 9.1 mg/dL (8.4-10.2); CARBON DIOXIDE 31 mmol/L (22-30); CHLORIDE 106 mmol/L (98-107); GLUCOSE 90 mg/dL (75-110); POTASSIUM 4.7 mmol/L (3.6-5.0); SODIUM 144.7 mmol/L (137-145)
[2017-08-05] MEDS: TOPIRAMATE 25 MG TABLET PO SCH ×3 (06:51→21:05)
[2017-08-05] MEDS: GABAPENTIN 300 MG CAPSULE PO SCH ×3 (06:51→21:05)
[2017-08-05] MEDS: CEPHALEXIN 500 MG CAPSULE PO SCH ×3 (06:56→21:07)
[2017-08-05] MEDS: PREDNISONE 20 MG TABLET PO SCH ×2 (09:15→18:30)
[2017-08-05] MEDS: AZITHROMYCIN 250 MG TABLET PO SCH (09:15)
[2017-08-05] MEDS: BENZONATATE 100 MG CAPSULE PO SCH ×3 (09:15→18:30)
[2017-08-05] MEDS: GUAIFENESIN 600 MG TABLET.SA PO SCH ×2 (09:18→21:07)
[2017-08-05] MEDS: TIOTROPIUM BROMIDE DPI 5 CAP/KIT (18 MCG/CAP) IH SCH (11:08)
[2017-08-05] MEDS ORDERED: BUTALB/ACETAMINOPHEN/CAFFEINE 1 TAB EACH PO PRN ×2 (13:10→14:15)
--- NOTE | 2017-08-05 13:12 | PDOC PROGRESS REPORT ---
Subjective Progress Note for:: 08/05/17 Subjective:: Patient reported episode of headache to nursing staff and requested for medication other than Tylenol and Ibuprofen. No chest pain. Breathing about same level on current medication management. Remain on supplemental. Reason For Visit: COPD Physical Exam Vital Signs: Temp Pulse Resp BP Pulse Ox 97.6 F 92 18 130/78 H 95 08/05/17 07:48 08/05/17 12:12 08/05/17 12:12 08/05/17 07:48 08/05/17 12:12 Pulse Oximeter Continuous Start: 08/01/17 10: 43 Freq: RTQ4 Status: Active Document 08/05/17 12:12 LDA (Rec: 08/05/17 12:23 LDA [email or web address]) Pulse Oximetry Assessment Oxygen Saturation (92-100) 94 Oxygen Flow Rate (L/min) 2 Oxygen Delivery Method Nasal Cannula Equipment Usage Equipment in Use Continuous SpO2 Machine # 9 Intake & Output 08/04/17 08/05/17 08/06/17 06:59 06:59 06:59 Intake Total 1390 920 Balance 1390 920 Weight 85.7 kg 86.4 kg Physical Exam: General appearance: PRESENT: no acute distress, well-developed, well-nourished Head exam: PRESENT: atraumatic, normocephalic Eye exam: PRESENT: conjunctiva pink, EOMI, PERRLA. ABSENT: scleral icterus Mouth exam: PRESENT: moist Respiratory exam: PRESENT: decreased breath sounds, minimal rhonchi - expiratory phase Cardiovascular exam: PRESENT: RRR. ABSENT: diastolic murmur, rubs, systolic murmur GI/Abdominal exam: PRESENT: normal bowel sounds, soft. ABSENT: distended, guarding, mass, organomegaly, rebound, tenderness Extremities exam: ABSENT: pedal edema Musculoskeletal exam: PRESENT: normal inspection Neurological exam: PRESENT: alert, awake, oriented to person, oriented to place , oriented to time, oriented to situation, CN II-XII grossly intact. ABSENT: motor sensory deficit Psychiatric exam: PRESENT: appropriate affect, normal mood. ABSENT: homicidal ideation, suicidal ideation Skin exam: PRESENT: dry, intact, warm. ABSENT: cyanosis, rash Results Laboratory Results: 08/04/17 04:03 08/05/17 04:45 08/05/17 04:45 Sodium 144.7 Potassium 4.7 Chloride 106 Carbon Dioxide 31 H Anion Gap 8 BUN 16 Creatinine 0.93 Est GFR ( Amer) > 60 Est GFR (Non-Af Amer) > 60 Glucose 90 Calcium 9.1 Impressions: Chest X-Ray 08/01/17 00:00 IMPRESSION: NO SIGNIFICANT RADIOGRAPHIC FINDING IN THE CHEST. Chest/Abdomen CTA 08/02/17 00:00 IMPRESSION: NORMAL CTA OF THE CHEST. NO PULMONARY EMBOLI. THERE ARE A FEW SCATTERED HAZY PARENCHYMAL OPACITIES. THESE ARE NONSPECIFIC AND COULD BE DUE TO ATELECTASIS OR PNEUMONITIS. Assessment & Plan - Diagnosis (1) Acute exacerbation of chronic obstructive pulmonary disease (COPD) Is this a current diagnosis for this admission?: Yes (2) Acute hypoxemic respiratory failure Is this a current diagnosis for this admission?: Yes (3) Seizure disorder Is this a current diagnosis for this admission?: Yes (4) Headache Is this a current diagnosis for this admission?: Yes Plan: Start on Fiorecet 1 tablet p.o q 6 hours prn for headache management. - Time Time Spent with patient: 25-34 minutes Medications reviewed and adjusted accordingly: Yes Anticipated discharge: Home Within: Other - Inpatient Certification Based on my medical assessment, after consideration of the patient's comorbidities, presenting symptoms, or acuity I expect that the services needed warrant INPATIENT care.: Yes I certify that my determination is in accordance with my understanding of Medicare's requirements for reasonable and necessary INPATIENT services [42 CFR 412.3e].: Yes Medical Necessity: Need Close Monitoring Due to Risk of Patient Decompensation, Need For Continuous Telemetry Monitoring, Need for IV Antibiotics, Risk of Complication if Not Cared For in Hospital Post Hospital Care: D/C Medical Customer Service Representative Documentation - Plan Summary Plan Summary: See covering attending physician orders.
[2017-08-05] MEDS: MONTELUKAST SODIUM 10 MG TABLET PO SCH (18:29)
[2017-08-05] MEDS: AMITRIPTYLINE HCL 50 MG TABLET PO SCH (21:05)
[2017-08-05] MEDS: DULOXETINE HCL 30 MG CAPSULE.DR PO SCH (21:06)
[2017-08-05] MEDS: CLONAZEPAM 1 MG TABLET PO SCH (21:07)
[2017-08-06] MEDS: IPRATROPIUM/ALBUTEROL 0.5-2.5 MG/3 ML AMPUL NEB SCH ×6 (00:42→20:40)
[2017-08-06 04:42] LABS: ANION GAP 11 (5-19); BLOOD UREA NITROGEN 17 mg/dL (7-20); CARBON DIOXIDE 29 mmol/L (22-30); CHLORIDE 105 mmol/L (98-107); GLUCOSE 124 mg/dL (75-110); POTASSIUM 4.8 mmol/L (3.6-5.0); SODIUM 145.2 mmol/L (137-145)
[2017-08-06] MEDS: CEPHALEXIN 500 MG CAPSULE PO SCH ×3 (06:34→22:11)
[2017-08-06] MEDS: TOPIRAMATE 25 MG TABLET PO SCH ×3 (06:34→22:14)
[2017-08-06] MEDS: GABAPENTIN 300 MG CAPSULE PO SCH ×3 (06:35→22:01)
[2017-08-06] MEDS: PREDNISONE 20 MG TABLET PO SCH ×2 (09:00→17:31)
[2017-08-06] MEDS: TIOTROPIUM BROMIDE DPI 5 CAP/KIT (18 MCG/CAP) IH SCH (09:00)
[2017-08-06] MEDS: AZITHROMYCIN 250 MG TABLET PO SCH (09:00)
[2017-08-06] MEDS: BENZONATATE 100 MG CAPSULE PO SCH ×3 (09:00→17:31)
[2017-08-06] MEDS: GUAIFENESIN 600 MG TABLET.SA PO SCH ×2 (09:02→22:14)
--- NOTE | 2017-08-06 16:15 | PDOC PROGRESS REPORT ---
Subjective Progress Note for:: 08/06/17 Subjective:: Patient continue to experience oxygen de-saturation and tachycardia with exertion. She denied chest pain. Oxygen saturation and heart rate iremain normal at rest. No nausea or vomiting. No abdominal pain. No fever or chills. Reason For Visit: COPD Physical Exam Vital Signs: Temp Pulse Resp BP Pulse Ox 97.9 F 96 16 122/74 96 08/06/17 11:25 08/06/17 13:58 08/06/17 12:07 08/06/17 11:25 08/06/17 12:07 Pulse Oximeter Continuous Start: 08/01/17 10: 43 Freq: RTQ4 Status: Active Document 08/06/17 12:07 [facility] (Rec: 08/06/17 12:20 [facility] [email or web address]) Pulse Oximetry Assessment Oxygen Saturation (92-100) 96 Oxygen Flow Rate (L/min) 2 Oxygen Delivery Method Nasal Cannula Fraction of Inspired Oxygen (FIO2) 28 Equipment Usage Equipment in Use Continuous SpO2 Machine # N 9 Intake & Output 08/05/17 08/06/17 08/07/17 06:59 06:59 06:59 Intake Total 920 2140 Output Total 0 Balance 920 2140 Weight 86.4 kg 86.3 kg Physical Exam: General appearance: PRESENT: no acute distress, well-developed, well-nourished Head exam: PRESENT: atraumatic, normocephalic Eye exam: PRESENT: conjunctiva pink, EOMI, PERRLA. ABSENT: scleral icterus Mouth exam: PRESENT: moist Respiratory exam: PRESENT: decreased breath sounds, very minimal rhonchi - expiratory phase Cardiovascular exam: PRESENT: RRR. ABSENT: diastolic murmur, rubs, systolic murmur GI/Abdominal exam: PRESENT: normal bowel sounds, soft. ABSENT: distended, guarding, mass, organomegaly, rebound, tenderness Extremities exam: ABSENT: pedal edema Musculoskeletal exam: PRESENT: normal inspection Neurological exam: PRESENT: alert, awake, oriented to person, oriented to place , oriented to time, oriented to situation, CN II-XII grossly intact. ABSENT: motor sensory deficit Psychiatric exam: PRESENT: appropriate affect, normal mood. ABSENT: homicidal ideation, suicidal ideation Skin exam: PRESENT: dry, intact, warm. ABSENT: cyanosis, rash Results Laboratory Results: 08/04/17 04:03 08/06/17 04:02 08/06/17 04:02 Sodium 145.2 H Potassium 4.8 Chloride 105 Carbon Dioxide 29 Anion Gap 11 BUN 17 Creatinine 0.93 Est GFR ( Amer) > 60 Est GFR (Non-Af Amer) > 60 Glucose 124 H Calcium 9.0 Impressions: Chest X-Ray 08/01/17 00:00 IMPRESSION: NO SIGNIFICANT RADIOGRAPHIC FINDING IN THE CHEST. Chest/Abdomen CTA 08/02/17 00:00 IMPRESSION: NORMAL CTA OF THE CHEST. NO PULMONARY EMBOLI. THERE ARE A FEW SCATTERED HAZY PARENCHYMAL OPACITIES. THESE ARE NONSPECIFIC AND COULD BE DUE TO ATELECTASIS OR PNEUMONITIS. Assessment & Plan - Diagnosis (1) Acute exacerbation of chronic obstructive pulmonary disease (COPD) Is this a current diagnosis for this admission?: Yes (2) Acute hypoxemic respiratory failure Is this a current diagnosis for this admission?: Yes (3) Seizure disorder Is this a current diagnosis for this admission?: Yes (4) Headache Is this a current diagnosis for this admission?: Yes - Time Time Spent with patient: 25-34 minutes Medications reviewed and adjusted accordingly: Yes Anticipated discharge: Home Within: Other - Inpatient Certification Based on my medical assessment, after consideration of the patient's comorbidities, presenting symptoms, or acuity I expect that the services needed warrant INPATIENT care.: Yes I certify that my determination is in accordance with my understanding of Medicare's requirements for reasonable and necessary INPATIENT services [42 CFR 412.3e].: Yes Medical Necessity: Need Close Monitoring Due to Risk of Patient Decompensation, Need For IV Fluids, Need For Continuous Telemetry Monitoring, Need for Nebulizer Therapy and Monitoring of Response, Risk of Complication if Not Cared For in Hospital Post Hospital Care: D/C Entry Engineer Documentation - Plan Summary Plan Summary: See covering attending physician orders.
[2017-08-06] MEDS: MONTELUKAST SODIUM 10 MG TABLET PO SCH (17:31)
[2017-08-06] MEDS: DULOXETINE HCL 30 MG CAPSULE.DR PO SCH (22:00)
[2017-08-06] MEDS ORDERED: CLONAZEPAM 1 MG TABLET PO SCH (22:00)
[2017-08-06] MEDS: AMITRIPTYLINE HCL 50 MG TABLET PO SCH (22:00)
[2017-08-06] MEDS: ACETAMINOPHEN 325 MG TABLET PO PRN (22:11)
[2017-08-07] MEDS: IPRATROPIUM/ALBUTEROL 0.5-2.5 MG/3 ML AMPUL NEB SCH ×4 (00:16→11:46)
[2017-08-07] MEDS: CEPHALEXIN 500 MG CAPSULE PO SCH (05:20)
[2017-08-07] MEDS: TOPIRAMATE 25 MG TABLET PO SCH ×2 (05:20→13:40)
[2017-08-07] MEDS: GABAPENTIN 300 MG CAPSULE PO SCH ×2 (05:21→13:40)
[2017-08-07 05:26] LABS: HEMATOCRIT 40.8 % (36.0-47.0); HEMOGLOBIN 13.3 g/dL (12.0-15.5); MEAN CORPUSCULAR HEMOGLOBIN 31.1 pg (27.0-33.4); MEAN CORPUSCULAR HGB CONC 32.7 g/dL (32.0-36.0); MEAN CORPUSCULAR VOLUME 95 fl (80-97); PLATELET COUNT 258 10^3/uL (150-450); RED BLOOD COUNT 4.29 10^6/uL (3.72-5.28); RED CELL DISTRIBUTION WIDTH 13.7 % (11.5-14.0); WHITE BLOOD COUNT 19.6 10^3/uL (4.0-10.5)
[2017-08-07 05:30] LABS: ABSOLUTE NEUTROPHILS# (MANUAL) 16.7 10^3/uL (1.7-8.2); BAND NEUTROPHILS % (MANUAL) 2 % (3-5); BASOPHILS % (MANUAL) 0 % (0-2); EOSINOPHILS % (MANUAL) 0 % (0-6); LYMPHOCYTES % (MANUAL) 9 % (13-45); MONOCYTES % (MANUAL) 5 % (3-13); SEGMENTED NEUTROPHILS % (MAN) 83 % (42-78); TOTAL CELLS COUNTED 100
[2017-08-07 05:31] LABS: PLATELET COMMENT ADEQUATE; RBC MORPHOLOGY COMMENT NORMO-CYTIC/CHROMIC; TOXIC GRANULATION 1+
[2017-08-07 05:35] LABS: ANION GAP 9 (5-19); BLOOD UREA NITROGEN 16 mg/dL (7-20); CALCIUM 9.2 mg/dL (8.4-10.2); CARBON DIOXIDE 29 mmol/L (22-30); CHLORIDE 105 mmol/L (98-107); GLUCOSE 96 mg/dL (75-110); POTASSIUM 4.4 mmol/L (3.6-5.0); SODIUM 142.7 mmol/L (137-145)
[2017-08-07] MEDS ORDERED: DOXYCYCLINE HYCLATE 100 MG TABLET PO ONE (09:00)
[2017-08-07] MEDS: GUAIFENESIN 600 MG TABLET.SA PO SCH (09:48)
[2017-08-07] MEDS: BENZONATATE 100 MG CAPSULE PO SCH ×2 (09:48→13:40)
[2017-08-07] MEDS: TIOTROPIUM BROMIDE DPI 5 CAP/KIT (18 MCG/CAP) IH SCH (09:49)
[2017-08-07] MEDS ORDERED: PREDNISONE 20 MG TABLET PO SCH ×2 (10:00)
--- NOTE | 2017-08-07 10:02 | PDOC PROGRESS REPORT ---
Subjective Progress Note for:: 08/07/17 Subjective:: Patient is currently doing fairThe resting patient O2 sat is above 95 but patients when she move Still dropped to up to below 90 and the required a couple of bladder oxygens Patient expressed to go home today but patient's white count is still elevated 19,000 patient does not have any fever Since cough is also getting better Reason For Visit: COPD Physical Exam Vital Signs: Temp Pulse Resp BP Pulse Ox 97.8 F 75 18 120/70 94 08/07/17 07:47 08/07/17 08:22 08/07/17 08:22 08/07/17 07:47 08/07/17 08:22 Pulse Oximeter Continuous Start: 08/01/17 10: 43 Freq: RTQ4 Status: Active Document 08/07/17 08:22 LDA (Rec: 08/07/17 09:51 LDA [email or web address]) Pulse Oximetry Assessment Oxygen Saturation (92-100) 94 Oxygen Delivery Method Room Air Equipment Usage Equipment in Use Continuous SpO2 Machine # 9 Intake & Output 08/06/17 08/07/17 08/08/17 06:59 06:59 06:59 Intake Total 2140 1485 Output Total 0 Balance 2140 1485 Weight 86.3 kg 84.9 kg General appearance: PRESENT: no acute distress, well-developed, well-nourished Head exam: PRESENT: atraumatic, normocephalic Eye exam: PRESENT: conjunctiva pink, EOMI, PERRLA. ABSENT: scleral icterus Ear exam: PRESENT: normal external ear exam Mouth exam: PRESENT: moist, tongue midline Neck exam: PRESENT: full ROM. ABSENT: carotid bruit, JVD, lymphadenopathy, thyromegaly Respiratory exam: PRESENT: clear to auscultation luz Cardiovascular exam: PRESENT: RRR. ABSENT: diastolic murmur, rubs, systolic murmur Pulses: PRESENT: normal dorsalis pedis pul, +2 pedal pulses bilateral Vascular exam: PRESENT: normal capillary refill GI/Abdominal exam: PRESENT: normal bowel sounds, soft. ABSENT: distended, guarding, mass, organolmegaly, rebound, tenderness Rectal exam: PRESENT: deferred Extremities exam: ABSENT: full ROM, left AKA, right AKA, left BKA, right BKA, calf tenderness, joint swelling, pedal edema, tenderness, other Musculoskeletal exam: PRESENT: ambulatory Neurological exam: PRESENT: alert, awake, oriented to person, oriented to place , oriented to time, oriented to situation, CN II-XII grossly intact. ABSENT: motor sensory deficit Psychiatric exam: PRESENT: appropriate affect, normal mood. ABSENT: homicidal ideation, suicidal ideation Skin exam: PRESENT: dry, intact, warm. ABSENT: cyanosis, rash Results Laboratory Results: 08/07/17 04:20 08/07/17 04:20 08/07/17 08/07/17 04:20 04:20 WBC 19.6 H RBC 4.29 Hgb 13.3 Hct 40.8 MCV 95 MCH 31.1 MCHC 32.7 RDW 13.7 Plt Count 258 Seg Neutrophils % Not Reportable Lymphocytes % Not Reportable Monocytes % Not Reportable Eosinophils % Not Reportable Basophils % Not Reportable Absolute Neutrophils Not Reportable Absolute Lymphocytes Not Reportable Absolute Monocytes Not Reportable Absolute Eosinophils Not Reportable Absolute Basophils Not Reportable Sodium 142.7 Potassium 4.4 Chloride 105 Carbon Dioxide 29 Anion Gap 9 BUN 16 Creatinine 0.91 Est GFR ( Amer) > 60 Est GFR (Non-Af Amer) > 60 Glucose 96 Calcium 9.2 Impressions: Chest X-Ray 08/01/17 00:00 IMPRESSION: NO SIGNIFICANT RADIOGRAPHIC FINDING IN THE CHEST. Chest/Abdomen CTA 08/02/17 00:00 IMPRESSION: NORMAL CTA OF THE CHEST. NO PULMONARY EMBOLI. THERE ARE A FEW SCATTERED HAZY PARENCHYMAL OPACITIES. THESE ARE NONSPECIFIC AND COULD BE DUE TO ATELECTASIS OR PNEUMONITIS. Assessment & Plan - Diagnosis (1) Acute exacerbation of COPD with asthma Is this a current diagnosis for this admission?: Yes Plan: Currently all resolving (2) Acute hypoxemic respiratory failure Is this a current diagnosis for this admission?: Yes Plan: Still needed oxygen discussed with the respiratory therapist to try to wean her from the oxygens and see the patients need oxygen at home when she patients move around (3) Seizure disorder Is this a current diagnosis for this admission?: Yes Plan: Will DC the Levaquin and start the patient on the cefepime (4) Chronic kidney disease Qualifiers: Chronic kidney disease stage: stage 2 (mild) Qualified Code(s): N18.2 - Chronic kidney disease, stage 2 (mild) Is this a current diagnosis for this admission?: Yes Plan: Low potassium in the diet repeat the potassium in the morning discussed with the nursing staff taking care of the patient and discussed with the patient about also (5) Leukocytosis Qualifiers: Leukocytosis type: unspecified Qualified Code(s): D72.829 - Elevated white blood cell count, unspecified Is this a current diagnosis for this admission?: Yes Plan: Most likely a steroid induce well patient's COPD is getting better we will taper this prednisone 10 mg - Time Time Spent with patient: 15-24 minutes Medications reviewed and adjusted accordingly: Yes Anticipated discharge: Home Within: within 24 hours - Inpatient Certification Medical Necessity: Need Close Monitoring Due to Risk of Patient Decompensation Post Hospital Care: D/C [facility] Documentation - Plan Summary Plan Summary: Restart the patient on doxycycline and DC the other antibiotic
--- NOTE | 2017-08-07 11:24 | PDOC DISCHARGE SUMMARY ---
General - Admit/Disc Date/PCP Admission Date/Primary Care Provider: 07/30/17 00:41 WALESKA BONNER MD Discharge Date: 08/07/17 - Discharge Diagnosis (1) Acute exacerbation of COPD with asthma Is this a current diagnosis for this admission?: Yes Summary: Currently all resolved start the patient on a CombiventFollow-up outpatients pulmonary for further evaluations (2) Acute hypoxemic respiratory failure Is this a current diagnosis for this admission?: Yes Summary: Patient is currently on room air no need for any oxygen's (3) Seizure disorder Is this a current diagnosis for this admission?: Yes (4) Chronic kidney disease Is this a current diagnosis for this admission?: Yes Summary: Currently all stable (5) Leukocytosis Is this a current diagnosis for this admission?: Yes Summary: Most likely steroid induced patient otherwise afebrile will repeat the CBC with differential in office if his persistent elevated need of further evaluations patients do not want to stay in the hospital anymore for further stay - Additional Information Discharge Diet: Regular Discharge Activity: Activity As Tolerated Prescriptions: Doxycycline Hyclate [Vibramycin 100 mg Tablet] 100 mg PO Q12 #14 tablet Ipratropium/Albuterol Sulfate [Combivent Respimat 4 gm Mdi] 1 puff IH BID #1 aer.w.[email or web address] Home Medications: Albuterol Sulfate [Ventolin Hfa] 2 puff IH Q6HP PRN 07/30/17 Amitriptyline HCl [Elavil 25 mg Tablet] 50 mg PO DAILY 07/30/17 Clonazepam [Klonopin] 1 mg PO DAILY 07/30/17 Duloxetine HCl [Cymbalta] 60 mg PO DAILY 07/30/17 Gabapentin [Neurontin 300 mg Capsule] 300 mg PO Q8 07/30/17 Mometasone/Formoterol [Dulera 200 Mcg/5 Mcg Inhaler] 2 puff IH BID 07/30/17 Montelukast Sodium [Singulair 10 mg Tablet] 10 mg PO QPM 07/30/17 Topiramate [Topamax] 50 mg PO TID 07/30/17 Doxycycline Hyclate [Vibramycin 100 mg Tablet] 100 mg PO Q12 #14 tablet Ipratropium/Albuterol Sulfate [Combivent Respimat 4 gm Mdi] 1 puff IH BID #1 aer.w.adap 08/07/17 History of Present Illness History of Present Illness: RAMSEY MYERS is a 47 year old female This is a 47-year-old female's came to the emergency department with a cough congestion and short of breath and admitted because of the COPD with acute exacerbations Hospital Course Hospital Course: This is a 47-year-old females with a significant medical problem as above with the history of the depression anxiety came to the emergency department with the complaint of shortness of the breath cough congestion's patient recently restarted the smoking patient's initial chest x-rays and everything was stable and admitting in the hospital for the IV steroid and nebulizer treatments Dr. Narayan the pulmonary also consulted for the hypoxia and patient underwent for the CT angiogram was also negative for any PE And initially put on IV antibiotics His white count was elevated most likely a steroid induced because patient does not have any fever no sign of any pneumonia in the CT scan Patients at this point switch everything p.o. but patient's white count is still persistent elevated but patient's otherwise clinically doing much better I believe her white count is elevated due to the steroid induce with no sign of any sepsis Patient's expressed to go home and does not want to stay anymore single day and decided to discharge the patient's with oral antibiotics and patient does not need any steroid anymore Follow-up outpatients pulmonary Follow-up outpatient in 1 week repeat the CBC and Chem-7 All the labs and CT scan discussed with the patient in follow-up require Patient's ambulatory in the hallway without any oxygens Physical Exam Vital Signs: Temp Pulse Resp BP Pulse Ox 97.8 F 75 18 120/70 94 08/07/17 07:47 08/07/17 08:22 08/07/17 08:22 08/07/17 07:47 08/07/17 08:22 Pulse Oximeter Continuous Start: 08/01/17 10: 43 Freq: RTQ4 Status: Active Document 08/07/17 08:22 LDA (Rec: 08/07/17 09:51 LDA [email or web address]) Pulse Oximetry Assessment Oxygen Saturation (92-100) 94 Oxygen Delivery Method Room Air Equipment Usage Equipment in Use Continuous SpO2 Machine # 9 Intake & Output 08/06/17 08/07/17 08/08/17 06:59 06:59 06:59 Intake Total 2140 1485 Output Total 0 Balance 2139 148 Weight 86.3 kg 84.9 kg General appearance: PRESENT: no acute distress, well-developed, well-nourished Head exam: PRESENT: atraumatic, normocephalic Eye exam: PRESENT: conjunctiva pink, EOMI, PERRLA. ABSENT: scleral icterus Ear exam: PRESENT: normal external ear exam Mouth exam: PRESENT: moist, tongue midline Neck exam: PRESENT: full ROM. ABSENT: carotid bruit, JVD, lymphadenopathy, thyromegaly Respiratory exam: PRESENT: clear to auscultation luz Cardiovascular exam: PRESENT: RRR. ABSENT: diastolic murmur, rubs, systolic murmur Pulses: PRESENT: normal dorsalis pedis pul, +2 pedal pulses bilateral Vascular exam: PRESENT: normal capillary refill GI/Abdominal exam: PRESENT: normal bowel sounds, soft. ABSENT: distended, guarding, mass, organolmegaly, rebound, tenderness Rectal exam: PRESENT: deferred Gentrourinary exam: ABSENT: ecchymosis, erythema, lacerations, lesions, scrotal swelling, testicular tenderness, urethral discharge, indwelling catheter, other Extremities exam: ABSENT: full ROM, left AKA, right AKA, left BKA, right BKA, calf tenderness, joint swelling, pedal edema, tenderness, other Musculoskeletal exam: PRESENT: ambulatory Neurological exam: PRESENT: alert, awake, oriented to person, oriented to place , oriented to time, oriented to situation, CN II-XII grossly intact. ABSENT: motor sensory deficit Psychiatric exam: PRESENT: appropriate affect, normal mood. ABSENT: homicidal ideation, suicidal ideation Skin exam: PRESENT: dry, intact, warm. ABSENT: cyanosis, rash Results Laboratory Results: 08/07/17 04:20 08/07/17 04:20 08/07/17 08/07/17 04:20 04:20 WBC 19.6 H RBC 4.29 Hgb 13.3 Hct 40.8 MCV 95 MCH 31.1 MCHC 32.7 RDW 13.7 Plt Count 258 Seg Neutrophils % Not Reportable Lymphocytes % Not Reportable Monocytes % Not Reportable Eosinophils % Not Reportable Basophils % Not Reportable Absolute Neutrophils Not Reportable Absolute Lymphocytes Not Reportable Absolute Monocytes Not Reportable Absolute Eosinophils Not Reportable Absolute Basophils Not Reportable Sodium 142.7 Potassium 4.4 Chloride 105 Carbon Dioxide 29 Anion Gap 9 BUN 16 Creatinine 0.91 Est GFR ( Amer) > 60 Est GFR (Non-Af Amer) > 60 Glucose 96 Calcium 9.2 Impressions: Chest X-Ray 08/01/17 00:00 IMPRESSION: NO SIGNIFICANT RADIOGRAPHIC FINDING IN THE CHEST. Chest/Abdomen CTA 08/02/17 00:00 IMPRESSION: NORMAL CTA OF THE CHEST. NO PULMONARY EMBOLI. THERE ARE A FEW SCATTERED HAZY PARENCHYMAL OPACITIES. THESE ARE NONSPECIFIC AND COULD BE DUE TO ATELECTASIS OR PNEUMONITIS. Plan Time Spent: Greater than 30 Minutes - Patient is discharged home with the stable conditions Follow-up outpatients pulmonary for further evaluations Repeat the CBC and Chem-7 in 3 days
--- NOTE | 2017-08-07 12:17 | RADIOLOGY REPORT (SQ) ---
EXAM DESCRIPTION: CHEST PA/LAT COMPLETED DATE/TIME: 08/07/2017 11:20 am REASON FOR STUDY: sob COMPARISON: 08/01/2017. EXAM PARAMETERS: NUMBER OF VIEWS: two views TECHNIQUE: Digital Frontal and Lateral radiographic views of the chest acquired. RADIATION DOSE: NA LIMITATIONS: none FINDINGS: LUNGS AND PLEURA: No opacities, masses or pneumothorax. No pleural effusion. MEDIASTINUM AND HILAR STRUCTURES: No masses or contour abnormalities. HEART AND VASCULAR STRUCTURES: Heart normal size. No evidence for failure. BONES: No acute findings. HARDWARE: None in the chest. OTHER: No other significant finding. IMPRESSION: NO SIGNIFICANT RADIOGRAPHIC FINDING IN THE CHEST. TECHNICAL DOCUMENTATION: JOB ID: [id number] [employer]- All Rights Reserved
--- NOTE | 2017-08-07 12:53 | PDOC PROGRESS REPORT ---
Subjective Progress Note for:: 08/07/17 Subjective:: Without complaints at this time Reason For Visit: COPD Physical Exam Vital Signs: Temp Pulse Resp BP Pulse Ox 97.8 F 88 18 109/70 94 08/07/17 12:14 08/07/17 12:14 08/07/17 12:14 08/07/17 12:14 08/07/17 12:14 Pulse Oximeter Continuous Start: 08/01/17 10: 43 Freq: RTQ4 Status: Active Document 08/07/17 11:46 LDA (Rec: 08/07/17 11:50 LDA [email or web address]) Pulse Oximetry Assessment Oxygen Saturation (92-100) 94 Oxygen Delivery Method Room Air Fraction of Inspired Oxygen (FIO2) 21 Equipment Usage Equipment in Use Continuous SpO2 Machine # 9 Intake & Output 08/06/17 08/07/17 08/08/17 06:59 06:59 06:59 Intake Total 2140 1485 Output Total 0 Balance 2140 1485 Weight 86.3 kg 84.9 kg General appearance: PRESENT: no acute distress, cooperative, disheveled, obese, well-developed. ABSENT: mild distress, morbidly obese, severe distress, thin Head exam: PRESENT: atraumatic, normocephalic Eye exam: PRESENT: conjunctiva pale, EOMI. ABSENT: conjunctival injection, conjunctiva pink, nystagmus, periorbital swelling, scleral icterus Mouth exam: PRESENT: moist, neck supple, tongue midline Neck exam: ABSENT: carotid bruit, JVD, lymphadenopathy, thyromegaly, tracheal deviation, tracheostomy Respiratory exam: PRESENT: decreased breath sounds, prolonged expiratory phas, rhonchi, symmetrical, unlabored. ABSENT: accessory muscle use, chest wall tenderness, clear to auscultation luz, crackles, rales, retraction, stridor, tachypnea Cardiovascular exam: PRESENT: RRR, +S1, +S2 Pulses: PRESENT: normal radial pulses GI/Abdominal exam: PRESENT: normal bowel sounds, soft. ABSENT: distended, guarding, mass, organolmegaly, rebound, tenderness Extremities exam: ABSENT: clubbing, joint swelling Musculoskeletal exam: ABSENT: deformity, dislocation Neurological exam: PRESENT: awake Skin exam: PRESENT: dry, warm Results Laboratory Results: 08/07/17 04:20 08/07/17 04:20 08/07/17 08/07/17 04:20 04:20 WBC 19.6 H RBC 4.29 Hgb 13.3 Hct 40.8 MCV 95 MCH 31.1 MCHC 32.7 RDW 13.7 Plt Count 258 Seg Neutrophils % Not Reportable Lymphocytes % Not Reportable Monocytes % Not Reportable Eosinophils % Not Reportable Basophils % Not Reportable Absolute Neutrophils Not Reportable Absolute Lymphocytes Not Reportable Absolute Monocytes Not Reportable Absolute Eosinophils Not Reportable Absolute Basophils Not Reportable Sodium 142.7 Potassium 4.4 Chloride 105 Carbon Dioxide 29 Anion Gap 9 BUN 16 Creatinine 0.91 Est GFR ( Amer) > 60 Est GFR (Non-Af Amer) > 60 Glucose 96 Calcium 9.2 Impressions: Chest/Abdomen CTA 08/02/17 00:00 IMPRESSION: NORMAL CTA OF THE CHEST. NO PULMONARY EMBOLI. THERE ARE A FEW SCATTERED HAZY PARENCHYMAL OPACITIES. THESE ARE NONSPECIFIC AND COULD BE DUE TO ATELECTASIS OR PNEUMONITIS. Chest X-Ray 08/07/17 00:00 IMPRESSION: NO SIGNIFICANT RADIOGRAPHIC FINDING IN THE CHEST. Assessment & Plan - Diagnosis (1) Acute exacerbation of COPD with asthma Is this a current diagnosis for this admission?: Yes Plan: at or near baseline (2) Acute hypoxemic respiratory failure Is this a current diagnosis for this admission?: No (3) Hypoxia Is this a current diagnosis for this admission?: No (4) Seizure disorder Is this a current diagnosis for this admission?: Yes
[2017-08-07 14:04] VITALS: BP 120/75
[2017-08-07] MEDS ORDERED: DOXYCYCLINE HYCLATE 100 MG TABLET PO SCH (22:00)
[2017-08-09 16:39] LABS: D001-IGE D PTERONYSSINUS 1.03 kU/L (Class II); D002-IGE D FARINAE MITE 0.79 kU/L (Class II); E001-IGE CAT DANDER <0.10 kU/L (Class 0); E005-IGE DOG DANDER <0.10 kU/L (Class 0); E072-IGE MOUSE URINE <0.10 kU/L (Class 0); F002-IGE MILK (COW) 0.37 kU/L (Class I); F004-IGE WHEAT 0.62 kU/L (Class II); F008-IGE CORN 0.15 kU/L (Class 0/I); F014-IGE SOYBEAN 0.13 kU/L (Class 0/I); F026-IGE PORK <0.10 kU/L (Class 0); F027-IGE BEEF <0.10 kU/L (Class 0); F245-IGE EGG WHOLE 0.43 kU/L (Class I); G002-IGE BERMUDA GRASS 0.12 kU/L (Class 0/I); G008-IGE BLUEGRASS KENTUCKY 0.13 kU/L (Class 0/I); M001-IGE PENICILLIUM CHRYSOGEN <0.10 kU/L (Class 0); M002-IGE CLADOSPORIUM HERBARUM <0.10 kU/L (Class 0); M003-IGE ASPERGILLUS FUMIGATUS 0.18 kU/L (Class 0/I); M004-IGE MUCOR RACEMOSUS <0.10 kU/L (Class 0); M005-IGE CANDIDA ALBICANS <0.10 kU/L (Class 0); M006-IGE ALTERNARIA ALTERNATA <0.10 kU/L (Class 0); M009-IGE FUSARIUM PROLIFERATUM <0.10 kU/L (Class 0); M010-IGE STEMPHYLIUM HERBARUM <0.10 kU/L (Class 0); M012-IGE AUREOBASIDI PULLULANS <0.10 kU/L (Class 0); M013-IGE PHOMA BETAE <0.10 kU/L (Class 0); M014-IGE EPICOCCUM PURPURASCEN <0.10 kU/L (Class 0); T007-IGE OAK WHITE 0.15 kU/L (Class 0/I); T008-IGE ELM AMERICAN (WHITE 0.15 kU/L (Class 0/I); W001-IGE RAGWEED SHORT/COMMO 0.16 kU/L (Class 0/I); W009-IGE PLANTAIN ENGLISH 0.17 kU/L (Class 0/I)
[2017-08-10 13:10] LABS: F052-IGE CHOCOLATE/COCOA <0.10 kU/L (Class 0)
--- NOTE | 2017-08-13 12:18 | RADIOLOGY REPORT (SQ) ---
EXAM DESCRIPTION: DYLLAN SWALLOW COMPLETED DATE/TIME: 08/03/2017 8:25 am REASON FOR STUDY: dysphagia COMPARISON: None. TECHNIQUE: Videofluoroscopic swallowing examination was performed in conjunction with speech patholo gy. Videofluoroscopic imaging was obtained and reviewed and these are the findings: RADIATION DOSE: Fluoro time 1.25 minutes 1 images saved to PACS. LIMITATIONS: None FINDINGS: The patient was brought into the fluoro room and placed upright on a modified barium swall ow chair. The patient was then given multiple consistencies mixed with barium to swallow under live fluoroscopic video guidance. According to the Speech Pathologist there was no penetration or aspirat ion. Please refer to the speech pathology report for further details. IMPRESSION: NO EVIDENCE OF PENETRATION OR ASPIRATION.PLEASE SEE SPEECH PATHOLOGIST REPORT FOR OTHER FINDINGS AND RECOMMENDATIONS. COMMENT: None Quality ID [id number]: Final reports for procedures using fluoroscopy that document radiation exposure daniela jessica, or exposure time and number of fluorographic images (if radiation exposure indices are not avail able) TECHNICAL DOCUMENTATION: JOB ID: [id number] [employer]- All Rights Reserved
== END 2017-08-07 14:33 | disposition home or self-care (01) | DRG 190 ==
LOC: ER 22:17 → EH 07-30 00:41 → 3W 07-30 02:36
PROVIDERS: ADMIT Family Medicine; ATTEND Family Medicine
DX: J44.1 Chronic obstructive pulmonary disease with (acute) exacerbation (principal); J96.01 Acute respiratory failure with hypoxia; J45.50 Severe persistent asthma, uncomplicated; N18.2 Chronic kidney disease, stage 2 (mild); E78.5 Hyperlipidemia, unspecified; F17.210 Nicotine dependence, cigarettes, uncomplicated; G40.909 Epilepsy, unspecified, not intractable, without status epilepticus; F41.1 Generalized anxiety disorder; D72.829 Elevated white blood cell count, unspecified; R51 Headache; Z79.51 Long term (current) use of inhaled steroids; Z79.899 Other long term (current) drug therapy
CPT/HCPCS: 36415; 36600; 71010; 71020; 71046; 71275; 74230; 80048; 80053; 82803; 83036; 83605; 83735; 85025; 85027; 86003; 93005; 93010; 94640; 94762; 96361; 96365; 96375; 99285; J0692; J1956; J2920; J2930; J3475; J3490; J7030; J7512; J7620

== ENCOUNTER → 2017-08-13 | Outpatient (CLI) | payer MEDICARE, OTHER ==
--- NOTE | 2017-08-13 15:58 | RADIOLOGY REPORT (SQ) ---
EXAM DESCRIPTION: HAND RIGHT 3 VIEWS COMPLETED DATE/TIME: 08/13/2017 2:37 pm REASON FOR STUDY: PAIN IN RIGHT HAND M79.641 PAIN IN RIGHT HAND COMPARISON: None. EXAM PARAMETERS: NUMBER OF VIEWS: Three views. TECHNIQUE: AP, lateral and oblique radiographic images acquired of the right hand. LIMITATIONS: None. FINDINGS: MINERALIZATION: Normal. BONES: No acute fracture or dislocation. No worrisome bone lesions. JOINTS: No effusions. SOFT TISSUES: No soft tissue swelling. No foreign body. OTHER: No other significant finding. IMPRESSION: NEGATIVE STUDY OF THE RIGHT HAND. NO RADIOGRAPHIC EVIDENCE OF ACUTE INJURY. TECHNICAL DOCUMENTATION: JOB ID: [id number] [employer]- All Rights Reserved
--- NOTE | 2017-08-13 15:59 | RADIOLOGY REPORT (SQ) ---
EXAM DESCRIPTION: FOREARM RIGHT COMPLETED DATE/TIME: 08/13/2017 2:37 pm REASON FOR STUDY: PAIN IN RIGHT HAND M79.641 PAIN IN RIGHT HAND COMPARISON: None. NUMBER OF VIEWS: Two views. TECHNIQUE: Two radiographic images acquired of the right forearm, including elbow and wrist in at le ast one projection. LIMITATIONS: None. FINDINGS: MINERALIZATION: Normal. BONES: No acute fracture. No worrisome bone lesions. SOFT TISSUES: No obvious swelling or foreign body. OTHER: No other significant finding. IMPRESSION: NEGATIVE STUDY OF THE RIGHT FOREARM. NO RADIOGRAPHIC EVIDENCE OF ACUTE INJURY. TECHNICAL DOCUMENTATION: JOB ID: [id number] [employer]- All Rights Reserved
== END ==
LOC: OD 14:11
PROVIDERS: ATTEND Family Medicine
DX: M79.641 Pain in right hand (principal)

== ENCOUNTER 2017-09-17 20:26 | Emergency (ER) | payer MEDICARE, OTHER ==
--- NOTE | 2017-09-17 21:46 | ER Document Report ---
ED Medical Screen (RME) - General Chief Complaint: Abdominal Pain Stated Complaint: FLANK PAIN Time Seen by Provider: 09/17/17 21:18 Notes: Patient is a 47-year-old female who presents emergency department with a chief complaint of sudden onset low back pain. Patient states that 1 hour prior to arrival she had sudden onset flank pain, intercostal neuralgia and epigastric pain as a 5 out of 5 in severity. States it is worse with movement. Did not take anything prior to arrival. States she has not a lot of anything over-the- counter. She admits to nausea without vomiting. She denies any belching, bloating, flatus, diarrhea. Patient states that her last bowel movement was earlier today. Patient states that she is a history of stage III kidney disease , pancreatic CA, intercostal neuralgia. States that she follows with [facility] he does have intercostal nerve blocks on her. Patient is a current smoker despite her chronic COPD. She denies any chest pain, shortness of breath. Past medical history significant for degenerative disc disease with previous laminectomies previous right hip fracture TRAVEL OUTSIDE OF THE [place] IN LAST 30 DAYS: No - Related Data Allergies/Adverse Reactions: Sulfa (Sulfonamide Antibiotics) Allergy (Verified 09/17/17 21:34) Past Medical History - Social History Chew tobacco use (# tins/day): No Frequency of alcohol use: None Drug Abuse: None - Past Medical History Cardiac Medical History: Reports: Hx Hypercholesterolemia Pulmonary Medical History: Reports: Hx Asthma, Hx COPD, Hx Pneumonia, Hx Respiratory Failure Neurological Medical History: Reports: Hx Seizures. Denies: Hx Migraine Endocrine Medical History: Reports: Hx Diabetes Mellitus Type 2 - borderline. Denies: Hx Diabetes Mellitus Type 1 Renal/ Medical History: Denies: Hx Peritoneal Dialysis GI Medical History: Denies: Hx Crohn's Disease, Hx Ulcerative Colitis Musculoskeltal Medical History: Denies Hx Gout Psychiatric Medical History: Denies: Hx Depression Traumatic Medical History: Denies: Hx Traumatic Brain Injury Past Surgical History: Reports: Hx Appendectomy, Hx Cholecystectomy, Hx Hysterectomy, Hx Orthopedic Surgery - numerous orthopedic surgeries, Hx Tonsillectomy - Immunizations History of Influenza Vaccine for 05/2017 - 10/2017 Season: Yes Influenza Administration Date for 05/2017 - 10/2017 Season: 05/06/17 Physical Exam - Vital signs Vitals: Temp Pulse Resp BP Pulse Ox 97.6 F 76 12 101/67 96 09/17/17 20:39 09/17/17 20:39 09/17/17 20:39 09/17/17 20:39 09/17/17 20:39 - Notes Notes: PHYSICAL EXAM GENERAL: Alert, interacts well. HEAD: Normocephalic, atraumatic. EYES: Pupils equal, round, and reactive to light. Extraocular movements intact. ENT: Oral mucosa moist, tongue midline. NECK: Full range of motion. Supple. Trachea midline. LUNGS: Clear to auscultation bilaterally, no wheezes, rales, or rhonchi. No respiratory distress. HEART: Regular rate and rhythm. No murmurs, gallops, or rubs. ABDOMEN: Soft, nondistended, nontender. No guarding, rebound, or rigidity. EXTREMITIES: Moves all 4 extremities spontaneously. No edema, radial and dorsalis pedis pulses 2/4 bilaterally. No cyanosis. Back: Tenderness to palpation of the bilateral paralumbar musculature without spinous process deformities, step-offs. Negative for CVA tenderness. NEUROLOGICAL: Alert and oriented x4. Normal speech. PSYCH: Normal affect, normal mood. SKIN: Warm, dry, normal turgor. No rashes or lesions noted. Course - Vital Signs Vital signs: Temp Pulse Resp BP Pulse Ox 97.6 F 76 12 101/67 96 09/17/17 20:39 09/17/17 20:39 09/17/17 20:39 09/17/17 20:39 09/17/17 20:39
[2017-09-17] MEDS ORDERED: CYCLOBENZAPRINE HCL 10 MG TABLET PO ONE (21:48)
[2017-09-17] MEDS ORDERED: ACETAMINOPHEN 325 MG TABLET PO ONE (21:48)
--- NOTE | 2017-09-17 22:59 | RADIOLOGY REPORT (SQ) ---
EXAM DESCRIPTION: ACUTE ABDOMEN SERIES CLINICAL HISTORY: 47 years, Female, abdominal pain COMPARISON: 07/29/2017. TECHNIQUE: Frontal chest, three abdominal views. FINDINGS: Normal lung volume, clear parenchyma, normal cardiac silhouette, and intact bony thorax. Paucity of bowel gas. No evidence of obstruction or perforation. Right upper abdominal clips. Lower lumbar hardware fusion, hardware overlies right sacroiliac joint, right total hip arthroplasty. IMPRESSION: No acute findings.
[2017-09-17 23:22] LABS: APPEARANCE,URINE SLIGHTLY-CLOUDY; BILIRUBIN,URINE NEGATIVE (NEGATIVE); COLOR,URINE YELLOW; GLUCOSE, URINE NEGATIVE (NEGATIVE); KETONES,URINE NEGATIVE (NEGATIVE); LEUKOCYTE ESTERASE,URINE LARGE (NEGATIVE); NITRITE,URINE NEGATIVE (NEGATIVE); PROTEIN,URINE NEGATIVE (NEGATIVE); URINE SPECIFIC GRAVITY 1.008; UROBILINOGEN,URINE NEGATIVE mg/dL (<2.0)
[2017-09-17 23:44] LABS: ABSOLUTE BASOPHILS # (AUTO) 0.1 10^3/uL (0.0-0.2); ABSOLUTE EOSINOPHILS # (AUTO) 0.6 10^3/uL (0.0-0.6); ABSOLUTE LYMPHOCYTES (AUTO) 2.2 10^3/uL (0.5-4.7); ABSOLUTE MONOCYTES (AUTO) 0.4 10^3/uL (0.1-1.4); ABSOLUTE NEUT (AUTO) 4.8 10^3/uL (1.7-8.2); BASOPHILS % (AUTO) 0.8 % (0-2); EOSINOPHILS % (AUTO) 7.7 % (0-6); HEMATOCRIT 41.6 % (36.0-47.0); HEMOGLOBIN 13.9 g/dL (12.0-15.5); LYMPHOCYTES % (AUTO) 27.4 % (13-45); MEAN CORPUSCULAR HEMOGLOBIN 31.8 pg (27.0-33.4); MEAN CORPUSCULAR HGB CONC 33.4 g/dL (32.0-36.0); MEAN CORPUSCULAR VOLUME 95 fl (80-97); PLATELET COUNT 245 10^3/uL (150-450); RED BLOOD COUNT 4.36 10^6/uL (3.72-5.28); RED CELL DISTRIBUTION WIDTH 13.8 % (11.5-14.0); SEGMENTED NEUTROPHILS % (AUTO) 59.1 % (42-78); TOTAL CELLS COUNTED % (AUTO) 100 %; WHITE BLOOD COUNT 8.2 10^3/uL (4.0-10.5)
[2017-09-17 23:55] LABS: ALANINE AMINOTRANSFERASE 32 U/L (9-52); ALBUMIN 4.3 g/dL (3.5-5.0); ALKALINE PHOSPHATASE 78 U/L (38-126); ANION GAP 10 (5-19); ASPARTATE AMINO TRANSFERASE 20 U/L (14-36); BILIRUBIN,DIRECT 0.2 mg/dL (0.0-0.4); BILIRUBIN,TOTAL 0.4 mg/dL (0.2-1.3); BLOOD UREA NITROGEN 13 mg/dL (7-20); CALCIUM 9.3 mg/dL (8.4-10.2); CARBON DIOXIDE 27 mmol/L (22-30); CHLORIDE 106 mmol/L (98-107); GLUCOSE 99 mg/dL (75-110); LIPASE 42.1 U/L (23-300); SODIUM 142.6 mmol/L (137-145); TOTAL PROTEIN 6.4 g/dL (6.3-8.2)
[2017-09-18] MEDS ORDERED: CEPHALEXIN 500 MG CAPSULE PO ONE (01:02)
--- NOTE | 2017-09-18 01:06 | ER Document Report ---
ED General - General Chief Complaint: Abdominal Pain Stated Complaint: FLANK PAIN Time Seen by Provider: 09/17/17 21:18 Notes: Patient is a 47-year-old female has a history of intercostal neuralgia who presents with complaint of pain that was on her right back and radiates around her right flank. Says pain feels similar to her intercostal neuralgia but she also feels that she is having some more pain is also lower of her kidney area. She denies any fevers. No vomiting. No diarrhea. No other complaints at this time. TRAVEL OUTSIDE OF THE [place] IN LAST 30 DAYS: No - Related Data Allergies/Adverse Reactions: Sulfa (Sulfonamide Antibiotics) Allergy (Verified 09/17/17 21:34) Past Medical History - Social History Smoking Status: Current Every Day Smoker Chew tobacco use (# tins/day): No Frequency of alcohol use: None Drug Abuse: None Family History: Reviewed & Not Pertinent, DM, Malignancy Patient has suicidal ideation: No Patient has homicidal ideation: No - Past Medical History Cardiac Medical History: Reports: Hx Hypercholesterolemia Pulmonary Medical History: Reports: Hx Asthma, Hx COPD, Hx Pneumonia, Hx Respiratory Failure Neurological Medical History: Reports: Hx Seizures. Denies: Hx Migraine Endocrine Medical History: Reports: Hx Diabetes Mellitus Type 2 - borderline. Denies: Hx Diabetes Mellitus Type 1 Renal/ Medical History: Denies: Hx Peritoneal Dialysis GI Medical History: Denies: Hx Crohn's Disease, Hx Ulcerative Colitis Musculoskeltal Medical History: Denies Hx Gout Psychiatric Medical History: Denies: Hx Depression Traumatic Medical History: Denies: Hx Traumatic Brain Injury Past Surgical History: Reports: Hx Appendectomy, Hx Cholecystectomy, Hx Hysterectomy, Hx Orthopedic Surgery - numerous orthopedic surgeries, Hx Tonsillectomy Review of Systems - Review of Systems Notes: My Normal Review Basic REVIEW OF SYSTEMS: CONSTITUTIONAL : Denies fever, chills, or sweats. Denies recent illness. GASTROINTESTINAL: Denies abdominal pain. Denies nausea, vomiting, or diarrhea. Denies constipation. Last BM: GENITOURINARY: Denies difficulty urinating, painful urination, burning, frequency, or blood in urine. MUSCULOSKELETAL: Right rib pain. Back pain SKIN: Denies rash or skin lesions. NEUROLOGICAL: Denies altered mental status or loss of consciousness. Denies headache. Denies weakness or paralysis or loss of use of either side. Denies problems with gait or speech. Denies sensory or motor loss. ALL OTHER SYSTEMS REVIEWED AND NEGATIVE. Physical Exam - Vital signs Vitals: Temp Pulse Resp BP Pulse Ox 97.6 F 76 12 101/67 96 09/17/17 20:39 09/17/17 20:39 09/17/17 20:39 09/17/17 20:39 09/17/17 20:39 - Notes Notes: General Appearance: Well nourished, alert, cooperative, no acute distress, mild obvious discomfort. Well-appearing. Vitals: reviewed, See vital signs table. Head: no swelling or tenderness to the head Eyes: PERRL, EOMI, Conjuctiva clear Mouth: No decreasd moisture Chest wall: I cannot reproduce pain to palpation of the chest wall. I do not see any rashes or evidence of shingles. Lungs: No wheezing, No rales, No rhonci, No accessory muscle use, good air exchange bilaterally. Heart: Normal rate, Regular rythm, No murmur, no rub Back: Pain over the low back is not reproducible to palpation. Abdomen: Normal BS, soft, No rigidity, No abdominal tenderness, No guarding, no rebound, no abdominal masses, no organomegaly Extremities: strength 5/5 in all extremities, good pulses in all extremities, no swelling or tenderness in the extremities, no edema. Skin: warm, dry, appropriate color, no rash Neuro: speech clear, oriented x 3, normal affect, responds appropriately to questions. Course - Re-evaluation Re-evalutation: 09/18/17 07:29 Inspection of the patient's pain is related to her chronic issue with intercostal neuralgia but also I think some of her low back pain could be related to urinary tract infection being the urinalysis shows evidence of UTI. I will place her on antibiotic. Encouraged her follow-up closely with her primary care doctor next 2-3 days for reevaluation. Strongly encouraged her return to ER if she has worsening pain, fevers, vomiting, or feels unwell. Patient agrees with plan will be discharged home. Dictation of this chart was performed using voice recognition software; therefore, there may be some unintended grammatical errors. - Vital Signs Vital signs: Temp Pulse Resp BP Pulse Ox 97.4 F 66 14 105/76 98 09/18/17 02:58 09/18/17 02:58 09/18/17 02:58 09/18/17 02:58 09/18/17 02:58 - Laboratory Result Diagrams: 09/17/17 23:25 09/17/17 23:25 Laboratory results interpreted by me: 09/17/17 09/17/17 09/17/17 22:36 23:25 23:25 Eosinophils % 7.7 H Est GFR (Non-Af Amer) 52 L Urine Blood SMALL H Ur Leukocyte Esterase LARGE H Discharge - Discharge Clinical Impression: Flank pain Urinary tract infection Qualifiers: Urinary tract infection type: site unspecified Hematuria presence: with hematuria Qualified Code(s): N39.0 - Urinary tract infection, site not specified Condition: Good Disposition: HOME, SELF-CARE Additional Instructions: Please return to the ER immediately if you develop worsening pain, fevers, vomiting, or feel unwell. Please follow up closely with your primary care physician in 2-3 days. Please take the antibiotic as prescribed for your urinary tract infection. Prescriptions: Cephalexin Monohydrate [Keflex 500 mg Capsule] 500 mg PO BID #15 capsule Referrals: WALESKA BONNER MD [Primary Care Provider] - 09/19/17
[2017-09-18 03:05] VITALS: BP 105/76
== END 2017-09-18 03:03 | disposition home or self-care (01) ==
LOC: ER 20:26
DX: N39.0 Urinary tract infection, site not specified (principal); R10.9 Unspecified abdominal pain; M54.9 Dorsalgia, unspecified; F17.200 Nicotine dependence, unspecified, uncomplicated
CPT/HCPCS: 99284; 36415; 83690; 85025; 81025; 80053; 81001; 74022; A9270 ×3

== ENCOUNTER → 2017-10-04 | Outpatient (CLI) | payer MEDICARE, OTHER | LOC: LAB 12:00 | PROVIDERS: ATTEND Internal Medicine Critical Care Medicine | DX: J44.9 Chronic obstructive pulmonary disease, unspecified (principal); F17.200 Nicotine dependence, unspecified, uncomplicated; R91.1 Solitary pulmonary nodule; R06.09 Other forms of dyspnea; F51.04 Psychophysiologic insomnia; F11.90 Opioid use, unspecified, uncomplicated; M54.9 Dorsalgia, unspecified; Z85.79 Personal history of other malignant neoplasms of lymphoid, hematopoietic and related tissues; Z80.9 Family history of malignant neoplasm, unspecified; Z92.21 Personal history of antineoplastic chemotherapy; Z92.3 Personal history of irradiation | CPT/HCPCS: 36415; 82785 ==

== ENCOUNTER 2017-10-15 23:07 | Emergency (ER) | payer MEDICARE, OTHER ==
[2017-10-15 23:18] VITALS: BP 116/71
--- NOTE | 2017-10-16 07:26 | EKG REPORT ---
SEVERITY:- NORMAL ECG - SINUS RHYTHM : Confirmed by: Cornell Magana MD 16-Oct-2017 07:25:12
== END 2017-10-16 00:26 | disposition left against medical advice (07) ==
LOC: ER 23:07
DX: Z53.21 Procedure and treatment not carried out due to patient leaving prior to being seen by health care provider (principal); R07.9 Chest pain, unspecified
CPT/HCPCS: 93005; 93010

== ENCOUNTER 2017-10-22 23:17 | Emergency (ER) | payer MEDICARE, OTHER ==
--- NOTE | 2017-10-23 01:21 | ER Document Report ---
ED General - General Chief Complaint: Abdominal Pain Stated Complaint: ABDOMINAL PAIN Time Seen by Provider: 10/23/17 00:58 Notes: Patient is a 47-year-old female with a past medical history below who presents with epigastric pain, dry heaving, nausea and vomiting for the past couple of days. She denies any right upper quadrant pain. She describes it as a burning epigastric discomfort that is worse with eating. She denies having symptoms like this previously in the past. She otherwise denies any shortness of breath , dyspnea on exertion, chest pain or pain radiating into her chest. She denies any diarrhea or constipation. Past medical history significant for chronic kidney disease stage III follows [address] Dr. Muller, history of epilepsy, COPD, intercostal neuralgia, history of non-Hodgkin's lymphoma. Past surgical history significant for 9 previous back surgeries, right hip arthroplasty, hysterectomy, cholecystectomy, tonsils and adenoids, lymphadenectomy for previous non-Hodgkin's diagnosis patient continues to smoke. TRAVEL OUTSIDE OF THE [place] IN LAST 30 DAYS: No - Related Data Allergies/Adverse Reactions: Sulfa (Sulfonamide Antibiotics) Allergy (Verified 09/17/17 21:34) Past Medical History - Social History Smoking Status: Current Every Day Smoker Family History: Reviewed & Not Pertinent, DM, Malignancy - Past Medical History Cardiac Medical History: Reports: Hx Hypercholesterolemia Pulmonary Medical History: Reports: Hx Asthma, Hx COPD, Hx Pneumonia, Hx Respiratory Failure Neurological Medical History: Reports: Hx Seizures. Denies: Hx Migraine Endocrine Medical History: Reports: Hx Diabetes Mellitus Type 2 - borderline. Denies: Hx Diabetes Mellitus Type 1 Renal/ Medical History: Denies: Hx Peritoneal Dialysis GI Medical History: Denies: Hx Crohn's Disease, Hx Ulcerative Colitis Musculoskeltal Medical History: Denies Hx Gout Psychiatric Medical History: Denies: Hx Depression Traumatic Medical History: Denies: Hx Traumatic Brain Injury Past Surgical History: Reports: Hx Appendectomy, Hx Cholecystectomy, Hx Hysterectomy, Hx Orthopedic Surgery - numerous orthopedic surgeries, Hx Tonsillectomy Review of Systems - Review of Systems Notes: REVIEW OF SYSTEMS: CONSTITUTIONAL : Denies fever, chills, or sweats. Denies recent illness. EENT: Denies eye, ear, throat, or mouth pain or symptoms. Denies nasal or sinus congestion or discharge. Denies throat, tongue, or mouth swelling or difficulty swallowing. CARDIOVASCULAR: Denies chest pain. Denies palpitations or racing or irregular heart beat. Denies ankle edema. RESPIRATORY: Admits to nonproductive cough and mild wheezing consistent with her COPD denies cough, cold, or chest congestion. Denies shortness of breath, difficulty breathing GASTROINTESTINAL: see HPI Denies blood in vomitus, stools, or per rectum. Denies black, tarry stools. Denies constipation. MUSCULOSKELETAL: Denies any muscle spasms, difficulty walking, extremity pain SKIN: Denies rash, lesions or sores. NEUROLOGICAL: Denies confusion or altered mental status. Denies passing out or loss of consciousness. Denies dizziness or lightheadedness. Denies headache. Denies weakness or paralysis or loss of use of either side. Denies problems with gait or speech. Denies sensory loss, numbness, or tingling. Denies seizures. PSYCHIATRIC: Denies anxiety or stress. Denies depression, suicidal ideation, or homicidal ideation. ALL OTHER SYSTEMS REVIEWED AND NEGATIVE. Dictation was performed using [employer] voice recognition software Physical Exam - Vital signs Vitals: Temp Pulse BP Pulse Ox 97.8 F 83 115/76 95 10/22/17 23:34 10/22/17 23:34 10/22/17 23:34 10/22/17 23:34 - Notes Notes: PHYSICAL EXAM GENERAL: Alert, interacts well. HEAD: Normocephalic, atraumatic. EYES: Pupils equal, round, and reactive to light. Extraocular movements intact. ENT: Oral mucosa moist, tongue midline. NECK: Full range of motion. Supple. Trachea midline. LUNGS: Clear to auscultation bilaterally, no wheezes, rales, or rhonchi. No respiratory distress. HEART: Regular rate and rhythm. No murmurs, gallops, or rubs. ABDOMEN: Soft, nondistended, nontender. No guarding, rebound, or rigidity.. Bowel sounds present in all 4 quadrants. EXTREMITIES: Moves all 4 extremities spontaneously. No edema, radial and dorsalis pedis pulses 2/4 bilaterally. No cyanosis. NEUROLOGICAL: Alert and oriented x4. Normal speech. PSYCH: Normal affect, normal mood. SKIN: Warm, dry, normal turgor. No rashes or lesions noted. Course - Re-evaluation Re-evalutation: 10/23/17 03:24 Patient is a 47-year-old female is hemodynamically stable, no acute distress and afebrile. Chest x-ray without any evidence of pneumonia or acute cardiopulmonary process. No evidence of free air under the diaphragm. CBC stable without evidence of leukocytosis or anemia. Chemistry panel stable without any evidence of electrolyte abnormalities. Lipase is negative. No evidence of elevated liver enzymes. Physical exam benign for any concerns for focal abdominal tenderness concerning for gallbladder involvement, pancreatitis. Patient states that she feels better after p.o. medications were provided in the ER. She is been able to tolerate p.o. without any difficulties been resting comfortably since her arrival. Troponin was also sent given patient's medical history, age which was negative therefore no concerns for a abnormal ACS presentation. Patient to be discharged home with strict return precautions and follow-up with primary care. - Vital Signs Vital signs: Temp Pulse Resp BP Pulse Ox 97.8 F 83 12 103/65 95 10/22/17 23:34 10/22/17 23:34 10/23/17 04:01 10/23/17 04:01 10/23/17 04:01 - Laboratory Result Diagrams: 10/23/17 01:44 10/23/17 01:44 Laboratory results interpreted by me: 10/23/17 10/23/17 01:44 01:44 Eosinophils % 8.5 H Absolute Eosinophils 0.8 H Chloride 109 H Est GFR (Non-Af Amer) 56 L Total Protein 6.1 L - Diagnostic Test Radiology reviewed: Image reviewed, Reports reviewed - EKG Interpretation by Or EKG shows normal: Sinus rhythm Rate: Normal Rhythm: NSR When compared to previous EKG there are: No significant change Discharge - Discharge Clinical Impression: Epigastric pain Condition: Good Disposition: HOME, SELF-CARE Additional Instructions: VOMITING: Vomiting (or nausea without vomiting) can be caused by many other different problems. It can mean that something's wrong with the stomach, such as ulcers or inflammation or the intestinal tract, such as appendicitis. But it can also be a symptom of a problem that has nothing to do with the stomach or intestines. Vomiting is common with severe headaches, earaches, tonsillitis, and kidney infections, etc. We see it with pneumonia or heart attacks. Drugs can cause nausea and vomiting. Many abdominal problems cause vomiting; for example, gallstones, kidney stones, pancreatitis, and intestinal obstruction ( blocked bowels). In most cases, curing the vomiting depends on fixing the problem that caused it. For temporary relief, we may use an anti-nausea medicine. For home use, we can prescribe suppositories, chewable pills, pills that dissolve in the mouth, or liquid anti-nausea drugs. If the vomiting seems to be caused by a problem in the stomach, acid-suppressing drugs may be prescribed as well. It's important to avoid dehydration. Sip small amounts of clear liquids ( soft drinks, tea, broth, etc) . Try to take fluids frequently even if you are vomiting to prevent dehydration. Take increasing amounts of fluid and when liquids are being consumed successfully, advance to small amounts of bland food (toast, soups, mashed potatoes, etc.) until you are able to resume a regular diet. Avoid aspirin, tobacco, and alcohol. If the vomiting worsens, if the problem that's making you vomit worsens, or if there's evidence of bleeding in the stomach (such as black, tarry stool, or bloody or black vomit), you should return immediately. Also, return if abdominal pain worsens or becomes localized to one area or you develop high fever. Call your doctor if you aren't improved in 24 hours. VIRAL SYNDROME: The physician has diagnosed a viral infection. Viruses not only cause "colds," but can cause many different symptoms including generalized aching, fever, headache, cough, diarrhea, nausea, vomiting, and fatigue. The treatment, for the most part, is simply relief of symptoms. This means that antibiotics are usually not given. Rest, fluids, pain medications and, occasionally, medication for the specific symptoms that are most bothersome will be prescribed. Use good handwashing to avoid passing the virus to others. Shared toys should be cleaned with disinfectant. Clean the toilets, sinks, and counter surfaces in bathrooms. Launder clothing in hot water. Contact the physician if you develop any new or unusual symptoms such as severe headache, stiff neck, high fever, chest pain, productive cough, or shortness of breath. You should be rechecked if you don't see marked improvement within seven to 10 days. ANTINAUSEA MEDICATION: You have been given a medication to suppress nausea and vomiting. This type of medication can be given as a shot, pill, or suppository. It will usually last for many hours. Pills and shots usually last six to eight hours. For the typical illness, only one or two doses of the medication may be necessary. Mild lightheadedness may occur. This type of medicine can cause drowsiness. Do not drive or operate dangerous machinery while under its influence. Do not mix with alcohol. See your doctor at once if you have muscle spasms or tightness, or uncontrollable motions (particularly of the neck, mouth, or jaw). Persistent vomiting or severe lightheadedness should also be evaluated by the physician. FOLLOW-UP CARE: If you have been referred to a physician for follow-up care, call the physician s office for an appointment as you were instructed or within the next two days. If you experience worsening or a significant change in your symptoms, notify the physician immediately or return to the Emergency Department at any time for re-evaluation. Prescriptions: Ondansetron [Zofran Odt 4 mg Tablet] 1 - 2 tab PO Q4H PRN #15 tab.rapdis PRN Reason: For Nausea/Vomiting Referrals: WALESKA BONNER MD [Primary Care Provider] - Follow up in 3-5 days
[2017-10-23 02:02] LABS: ABSOLUTE BASOPHILS # (AUTO) 0.1 10^3/uL (0.0-0.2); ABSOLUTE EOSINOPHILS # (AUTO) 0.8 10^3/uL (0.0-0.6); ABSOLUTE LYMPHOCYTES (AUTO) 2.6 10^3/uL (0.5-4.7); ABSOLUTE MONOCYTES (AUTO) 0.7 10^3/uL (0.1-1.4); ABSOLUTE NEUT (AUTO) 5.4 10^3/uL (1.7-8.2); BASOPHILS % (AUTO) 0.9 % (0-2); EOSINOPHILS % (AUTO) 8.5 % (0-6); HEMATOCRIT 40.9 % (36.0-47.0); HEMOGLOBIN 13.9 g/dL (12.0-15.5); LYMPHOCYTES % (AUTO) 26.9 % (13-45); MEAN CORPUSCULAR HEMOGLOBIN 32.2 pg (27.0-33.4); MEAN CORPUSCULAR HGB CONC 33.9 g/dL (32.0-36.0); MEAN CORPUSCULAR VOLUME 95 fl (80-97); MONOCYTES % (AUTO) 7.2 % (3-13); PLATELET COUNT 310 10^3/uL (150-450); RED BLOOD COUNT 4.31 10^6/uL (3.72-5.28); RED CELL DISTRIBUTION WIDTH 13.4 % (11.5-14.0); SEGMENTED NEUTROPHILS % (AUTO) 56.5 % (42-78); TOTAL CELLS COUNTED % (AUTO) 100 %; WHITE BLOOD COUNT 9.5 10^3/uL (4.0-10.5)
[2017-10-23 02:13] LABS: ALANINE AMINOTRANSFERASE 30 U/L (9-52); ALBUMIN 3.8 g/dL (3.5-5.0); ALKALINE PHOSPHATASE 81 U/L (38-126); ANION GAP 11 (5-19); ASPARTATE AMINO TRANSFERASE 16 U/L (14-36); BILIRUBIN,DIRECT 0.3 mg/dL (0.0-0.4); BILIRUBIN,TOTAL 0.3 mg/dL (0.2-1.3); BLOOD UREA NITROGEN 14 mg/dL (7-20); CALCIUM 9.2 mg/dL (8.4-10.2); CARBON DIOXIDE 25 mmol/L (22-30); CHLORIDE 109 mmol/L (98-107); GLUCOSE 91 mg/dL (75-110); LIPASE 82.5 U/L (23-300); POTASSIUM 4.1 mmol/L (3.6-5.0); SODIUM 144.5 mmol/L (137-145); TOTAL PROTEIN 6.1 g/dL (6.3-8.2)
[2017-10-23] MEDS ORDERED: METOCLOPRAMIDE HCL ORAL SOLN 10 MG/10 ML UDCUP PO ONE (02:32)
[2017-10-23] MEDS ORDERED: MAG HYDROX/AL HYDROX/SIMETH SUSP 30 ML UDCUP PO ONE (02:32)
[2017-10-23] MEDS ORDERED: LIDOCAINE 2% VISCOUS SOLN 20 ML UDCUP PO ONE (02:32)
--- NOTE | 2017-10-23 02:54 | RADIOLOGY REPORT (SQ) ---
EXAM DESCRIPTION: CHEST PA/LAT CLINICAL HISTORY: nausea, vomiting epigastric pain COMPARISON: 08/07/2017 FINDINGS: Frontal and lateral views of the chest. The cardiomediastinal silhouette has normal size and contour. No consolidation, pneumothorax, or pleural effusion. Leads overlie the chest. No acute osseous abnormalities identified. Prior cholecystectomy. IMPRESSION: 1. No acute pulmonary process identified.
[2017-10-23 04:05] VITALS: BP 103/65
--- NOTE | 2017-10-23 09:31 | EKG REPORT ---
SEVERITY:- NORMAL ECG - SINUS RHYTHM : Confirmed by: Marco Antonio Burciaga 23-Oct-2017 09:30:53
== END 2017-10-23 04:11 | disposition home or self-care (01) ==
LOC: ER 23:17
DX: R10.13 Epigastric pain (principal); R11.2 Nausea with vomiting, unspecified; N18.3 Chronic kidney disease, stage 3 (moderate); J44.9 Chronic obstructive pulmonary disease, unspecified; E11.9 Type 2 diabetes mellitus without complications; R05 Cough; F17.200 Nicotine dependence, unspecified, uncomplicated; Z88.2 Allergy status to sulfonamides; Z90.49 Acquired absence of other specified parts of digestive tract; Z98.890 Other specified postprocedural states
CPT/HCPCS: 93005; 99284; 36415; 83690; 85025; 80053; 84484; 71046; 93010; J3490; A9270

== ENCOUNTER 2017-11-13 20:23 | Emergency (ER) | payer MEDICARE, OTHER ==
[2017-11-13] MEDS ORDERED: IPRATROPIUM/ALBUTEROL 0.5-2.5 MG/3 ML AMPUL NEB ONE (20:59)
[2017-11-13] MEDS ORDERED: PREDNISONE 20 MG TABLET PO ONE (20:59)
[2017-11-13] MEDS: ALBUTEROL SULFATE 0.083% NEB 2.5 MG/3 ML AMPUL NEB SCH ×2 (21:03→21:58)
[2017-11-13] MEDS ORDERED: DEXAMETHASONE SOD PHOS INJ 10 MG/1 ML VIAL IV ONE (21:58)
[2017-11-13] MEDS ORDERED: MAGNESIUM SULFATE/D5W 1 GM/100 ML RTUPB IV PRN (21:58)
--- NOTE | 2017-11-13 21:58 | ER Document Report ---
ED General - General Chief Complaint: Chest pain, short of breath Stated Complaint: TROUBLE BREATHING Time Seen by Provider: 11/13/17 21:36 TRAVEL OUTSIDE OF THE [place] IN LAST 30 DAYS: No - HPI Notes: Patient is a 47-year-old female with a history of COPD who presents to the ED complaining of left sternal chest pain that radiates to her shoulder, dry cough , wheezing, shortness of breath that began prior to arrival. Patient states that she was diagnosed with pericarditis 10 days ago by [facility], and has been evaluated by her primary care provider as well as one statistics intern. Patient states that she does sleep on 2 pillows at nighttime because her pain to increase when she is lying flat. Patient states that this chest pain that she is experiencing as well as the wheezing is new for her recently, but believes that she may be having another copd flare. Patient states that she was using her inhalers with minimal relief this evening. Patient denies any other significant cardiac or pulmonary medical history. Patient does admit to smoking. She denies any IV drug use, hormone replacement, previous DVT/PE, recent surgery/trauma, prolonged immobilization. Patient was evaluated by her primary care provider Dr. Bonner who directed her to a statistics intern, Dr. Burciaga. Patient and Dr. Bonner were not satisfied with that consult so she has a consult pending for another statistics intern in the next couple days. No other concerns or complaints at this time. Denies any headache, fever, neck pain, URI, sore throat, palpitations, syncope, abdominal pain, nausea/vomiting/diarrhea, urinary retention, dysuria, hematuria, loss of control of bowel or bladder, numbness/tingling, saddle anesthesia, muscle paralysis/weakness, or rash. - Related Data Allergies/Adverse Reactions: Sulfa (Sulfonamide Antibiotics) Allergy (Verified 09/17/17 21:34) Past Medical History - Social History Smoking Status: Current Every Day Smoker Chew tobacco use (# tins/day): No Frequency of alcohol use: None Drug Abuse: None Family History: Reviewed & Not Pertinent, DM, Malignancy Patient has suicidal ideation: No Patient has homicidal ideation: No - Past Medical History Cardiac Medical History: Reports: Hx Hypercholesterolemia Pulmonary Medical History: Reports: Hx Asthma, Hx COPD, Hx Pneumonia, Hx Respiratory Failure Neurological Medical History: Reports: Hx Seizures. Denies: Hx Migraine Endocrine Medical History: Reports: Hx Diabetes Mellitus Type 2 - borderline. Denies: Hx Diabetes Mellitus Type 1 Renal/ Medical History: Denies: Hx Peritoneal Dialysis GI Medical History: Denies: Hx Crohn's Disease, Hx Ulcerative Colitis Musculoskeltal Medical History: Denies Hx Gout Psychiatric Medical History: Denies: Hx Depression Traumatic Medical History: Denies: Hx Traumatic Brain Injury Past Surgical History: Reports: Hx Appendectomy, Hx Cholecystectomy, Hx Hysterectomy, Hx Orthopedic Surgery - numerous orthopedic surgeries, Hx Tonsillectomy Review of Systems - Review of Systems -: Yes All other systems reviewed and negative Physical Exam - Vital signs Vitals: Resp 22 H 11/13/17 20:40 - Notes Notes: PHYSICAL EXAMINATION: GENERAL: Well-appearing, well-nourished and in no acute distress. A&Ox4. Answers questions appropriately. HEAD: Atraumatic, normocephalic. EYES: Pupils equal round and reactive to light, extraocular movements intact, sclera anicteric, conjunctiva are normal. ENT: Nares patent and without discharge. oropharynx clear without exudates. No tonsilar hypertrophy or erythema. Moist mucous membranes. NECK: Normal range of motion, supple without lymphadenopathy Chest: + moderate tenderness left sternal border, correlates with pain described. No flail chest. LUNGS: Wheezing b/l. no retractions. HEART: Regular rate and rhythm without murmurs, rubs, gallops. ABDOMEN: Soft, nontender, nondistended abdomen. No guarding, no rebound. No masses appreciated. Normal bowel sounds present. No CVA tenderness bilaterally. Musculoskeletal: FROM to passive/active. Strength 5+/5. Marlen neg b/l. Extremities: No cyanosis, clubbing, or edema b/l. Peripheral pulses 2+. Capillary refill less than 3 seconds. NEUROLOGICAL: Normal speech, normal gait. Normal sensory, motor exams PSYCH: Normal mood, normal affect. SKIN: Warm, Dry, normal turgor, no rashes or lesions noted. Course - Re-evaluation Re-evalutation: 11/14/17 01:51 Patient is an afebrile, well-hydrated, 47-year-old female who presents to the ED with a COPD exacerbation. Vitals are acceptable. PE is otherwise unremarkable. CBC, CMP, cardiac enzymes 2/EKG were unremarkable for any acute pathology. Chest x-ray was also unremarkable for any acute pathology. Patient is tolerating p.o. without any difficulties and ate a big Mac in the emergency department today. Patient has palpable and reproducible chest wall tenderness which correlates with her pain described. Patient has not had any worsening symptoms. Heart score of 2 and PERC 0. Patient was given Decadron, DuoNeb, and magnesium which improved her lung sounds. Patient had wheezing bilaterally which did improve on re-auscultation. Patient was ambulated and maintain in oxygen saturation greater than 94% on room air. Low suspicion for any ACS, PE, pneumothorax, pericarditis, dissection, respiratory compromise, severe dehydration, sepsis, meningitis, or other systemic emergent condition at this time. Patient is aware that her condition can change from initial presentation and she needs to monitor symptoms closely and seek medical attention for any acute changes. Recommend conservative measures for symptoms. Recheck with your PCM in 3-5 days. Return to the ED with any worsening/concerning symptoms otherwise as reviewed in discharge. Patient is in agreement. - Vital Signs Vital signs: Temp Pulse Resp BP Pulse Ox 22 H 11/13/17 20:40 - Laboratory Result Diagrams: 11/13/17 22:00 11/13/17 22:00 Laboratory results interpreted by me: 11/13/17 11/13/17 22:00 22:00 Eosinophils % 9.3 H Absolute Eosinophils 1.0 H Est GFR (Non-Af Amer) 57 L Total Protein 6.2 L Discharge - Discharge Clinical Impression: COPD exacerbation Condition: Stable Disposition: HOME, SELF-CARE Instructions: Chest Wall Pain ([facility]), Chest Pain of Unclear Cause ([facility]), Chronic Obstructive Lung Disease ([facility]) Additional Instructions: Maintain adequate fluid intake Take meds as directed Ice, cool compresses, warm compresses may help tylenol/ibuprofen as needed over the counter cold medication as needed for symptoms Humidified air may help Wash your hands regularly Wear a mask when coughing F/u: with your PCM in 2-3 days for a recheck Keep scheduled appointment with your statistics intern in 2 days. Return to the ED with any worsening symptoms and/or development of fever, headache, worsening chest pain, STOUT, palpitations, syncope, shortness of breath , trouble breathing, abdominal pain, n/v/d, blood in stool/urine, or other worsening symptoms that are concerning to you. Forms: Smoking Cessation Education Referrals: WALESKA BONNER MD [Primary Care Provider] - 11/16/17 CARDIOLOGY [Provider Group] - 11/15/17
--- NOTE | 2017-11-13 22:00 | RADIOLOGY REPORT (SQ) ---
EXAM DESCRIPTION: CHEST SINGLE VIEW COMPLETED DATE/TIME: 11/13/2017 9:40 pm REASON FOR STUDY: difficulty breathing COMPARISON: 10/23/2017. EXAM PARAMETERS: NUMBER OF VIEWS: One view. TECHNIQUE: Single frontal radiographic view of the chest acquired. RADIATION DOSE: NA LIMITATIONS: None. FINDINGS: LUNGS AND PLEURA: No opacities, masses or pneumothorax. No pleural effusion. MEDIASTINUM AND HILAR STRUCTURES: No masses. Contour normal. HEART AND VASCULAR STRUCTURES: Heart normal in size. Normal vasculature. BONES: No acute findings. HARDWARE: None in the chest. OTHER: No other significant finding. IMPRESSION: NO ACUTE RADIOGRAPHIC FINDING IN THE CHEST. TECHNICAL DOCUMENTATION: JOB ID: [id number] [employer]- All Rights Reserved Reading location - IP/workstation name: [email or web address]
[2017-11-13 22:13] LABS: ABSOLUTE BASOPHILS # (AUTO) 0.1 10^3/uL (0.0-0.2); ABSOLUTE LYMPHOCYTES (AUTO) 2.4 10^3/uL (0.5-4.7); ABSOLUTE MONOCYTES (AUTO) 0.6 10^3/uL (0.1-1.4); ABSOLUTE NEUT (AUTO) 6.3 10^3/uL (1.7-8.2); BASOPHILS % (AUTO) 0.6 % (0-2); EOSINOPHILS % (AUTO) 9.3 % (0-6); HEMATOCRIT 42.7 % (36.0-47.0); MEAN CORPUSCULAR HEMOGLOBIN 31.5 pg (27.0-33.4); MEAN CORPUSCULAR HGB CONC 32.9 g/dL (32.0-36.0); MEAN CORPUSCULAR VOLUME 96 fl (80-97); MONOCYTES % (AUTO) 5.6 % (3-13); PLATELET COUNT 311 10^3/uL (150-450); RED BLOOD COUNT 4.46 10^6/uL (3.72-5.28); RED CELL DISTRIBUTION WIDTH 13.2 % (11.5-14.0); SEGMENTED NEUTROPHILS % (AUTO) 61.5 % (42-78); TOTAL CELLS COUNTED % (AUTO) 100 %; WHITE BLOOD COUNT 10.2 10^3/uL (4.0-10.5)
[2017-11-13 22:31] LABS: ALANINE AMINOTRANSFERASE 31 U/L (9-52); ALKALINE PHOSPHATASE 79 U/L (38-126); ANION GAP 10 (5-19); ASPARTATE AMINO TRANSFERASE 19 U/L (14-36); BILIRUBIN,DIRECT 0.1 mg/dL (0.0-0.4); BILIRUBIN,TOTAL 0.3 mg/dL (0.2-1.3); BLOOD UREA NITROGEN 15 mg/dL (7-20); CALCIUM 9.2 mg/dL (8.4-10.2); CARBON DIOXIDE 25 mmol/L (22-30); CHLORIDE 107 mmol/L (98-107); CREATINE KINASE 125 U/L (30-135); GLUCOSE 93 mg/dL (75-110); POTASSIUM 4.1 mmol/L (3.6-5.0); SODIUM 142.3 mmol/L (137-145); TOTAL PROTEIN 6.2 g/dL (6.3-8.2)
[2017-11-13 22:42] LABS: CREATINE KINASE MB 1.22 ng/mL (<4.55)
[2017-11-13 22:44] LABS: TROPONIN I < 0.012 ng/mL
[2017-11-14] MEDS ORDERED: MAGNESIUM SULFATE/D5W 1 GM/100 ML RTUPB IV ONE (00:11)
[2017-11-14 02:37] VITALS: BP 112/73
--- NOTE | 2017-11-14 07:26 | EKG REPORT ---
SEVERITY:- OTHERWISE NORMAL ECG - SINUS ARRHYTHMIA, RATE 66-90 : Confirmed by: Cornell Magana MD 14-Nov-2017 07:26:15
== END 2017-11-14 02:50 | disposition home or self-care (01) ==
LOC: ER 20:23
DX: J44.1 Chronic obstructive pulmonary disease with (acute) exacerbation (principal); R07.9 Chest pain, unspecified; F17.200 Nicotine dependence, unspecified, uncomplicated; E78.00 Pure hypercholesterolemia, unspecified; E11.9 Type 2 diabetes mellitus without complications; Z90.49 Acquired absence of other specified parts of digestive tract; Z88.2 Allergy status to sulfonamides; Z90.710 Acquired absence of both cervix and uterus
CPT/HCPCS: 93005; 94640 ×2; 99285; 96375; 96365; 36415; 82553; 82550; 85025; 80053; 84484; 71045; 93010; J3475 ×2; J1100; A9270 ×2; J7620

== ENCOUNTER → 2017-11-20 | Outpatient (CLI) | payer MEDICARE, OTHER ==
--- NOTE | 2017-11-20 13:29 | RADIOLOGY REPORT (SQ) ---
EXAM DESCRIPTION: CT CHEST WITHOUT COMPLETED DATE/TIME: 11/20/2017 12:37 pm REASON FOR STUDY: PULMONARY INFILTRATE (R91.8), PULMONARY NODULE (R91.1) R91.8 OTHER NONSPECIFIC AB NORMAL FINDING OF LUNG FIELD COMPARISON: 08/02/2017 TECHNIQUE: CT scan performed of the chest without intravenous contrast. Images reviewed with lung, soft tissue and bone windows. Reconstructed coronal and sagittal MPR images reviewed. All images st ored on PACS. All CT scanners at this facility use dose modulation, iterative reconstruction, and/or weight based d osing when appropriate to reduce radiation dose to as low as reasonably achievable (ALARA). [facility]: Dose Right [facility]: CareDose [facility]: Dose Right [facility]: Teradose 4D [facility]: [employer] RADIATION DOSE: CT Rad equipment meets quality standard of care and radiation dose reduction techniq ues were employed. CTDIvol: 4.8 mGy. DLP: 195 mGy-cm. mGy. LIMITATIONS: No technical limitations. FINDINGS: LUNGS AND PLEURA: Ground-glass opacities in the upper lobes have resolved. There is now d evelopment of diffuse ground-glass opacity in the right middle lobe. No focal pulmonary nodules. No effusions. HILAR AND MEDIASTINAL STRUCTURES: No identified masses or abnormal nodes. No obvious aneurysm. HEART AND VASCULAR STRUCTURES: No aneurysm. No pericardial effusion. UPPER ABDOMEN: No significant findings. Limited exam. THYROID AND OTHER SOFT TISSUES: No masses. No adenopathy. BONES: No significant finding. HARDWARE: None in the chest. OTHER: No other significant findings. IMPRESSION: Clearing of the upper lobe ground-glass opacities Interval development of diffuse ground-glass opacity in the right middle lobe. Suspect infection. TECHNICAL DOCUMENTATION: JOB ID: [id number] Quality ID # [id number]: Final reports with documentation of one or more dose reduction techniques (e.g., Au tomated exposure control, adjustment of the mA and/or kV according to patient size, use of iterative reconstruction technique) 2010 [employer]- All Rights Reserved Reading location - IP/workstation name: [email or web address]
== END ==
LOC: RAD 12:15
PROVIDERS: ATTEND Internal Medicine Critical Care Medicine
DX: R91.1 Solitary pulmonary nodule (principal); R91.8 Other nonspecific abnormal finding of lung field; J43.9 Emphysema, unspecified; J45.901 Unspecified asthma with (acute) exacerbation; R06.09 Other forms of dyspnea; F11.90 Opioid use, unspecified, uncomplicated; Z92.3 Personal history of irradiation; Z92.21 Personal history of antineoplastic chemotherapy; Z80.9 Family history of malignant neoplasm, unspecified
CPT/HCPCS: 71250

== ENCOUNTER → 2017-11-24 | Outpatient (CLI) | payer MEDICARE, OTHER ==
[2017-11-24 10:00] LABS: HEMOGLOBIN 14.4 g/dL (12.0-15.5); MEAN CORPUSCULAR HEMOGLOBIN 31.5 pg (27.0-33.4); MEAN CORPUSCULAR HGB CONC 32.8 g/dL (32.0-36.0); MEAN CORPUSCULAR VOLUME 96 fl (80-97); PLATELET COUNT 370 10^3/uL (150-450); RED BLOOD COUNT 4.58 10^6/uL (3.72-5.28); RED CELL DISTRIBUTION WIDTH 13.7 % (11.5-14.0); WHITE BLOOD COUNT 10.7 10^3/uL (4.0-10.5)
[2017-11-24 10:19] LABS: APPEARANCE,URINE SLIGHTLY-CLOUDY; BILIRUBIN,URINE NEGATIVE (NEGATIVE); COLOR,URINE YELLOW; GLUCOSE, URINE NEGATIVE (NEGATIVE); KETONES,URINE NEGATIVE (NEGATIVE); LEUKOCYTE ESTERASE,URINE TRACE (NEGATIVE); NITRITE,URINE NEGATIVE (NEGATIVE); PROTEIN,URINE NEGATIVE (NEGATIVE); URINE SPECIFIC GRAVITY 1.014; UROBILINOGEN,URINE NEGATIVE mg/dL (<2.0)
[2017-11-24 10:44] LABS: ERYTHROCYTE SEDIMENTATION RATE 6 mm/hr (0-20)
[2017-11-26 10:48] LABS: ANION GAP 10 (5-19); BLOOD UREA NITROGEN 19 mg/dL (7-20); CALCIUM 9.3 mg/dL (8.4-10.2); CARBON DIOXIDE 29 mmol/L (22-30); CHLORIDE 106 mmol/L (98-107); GLUCOSE 110 mg/dL (75-110); POTASSIUM 5.2 mmol/L (3.6-5.0)
== END ==
LOC: OD 08:11
PROVIDERS: ATTEND Internal Medicine Nephrology
DX: N18.3 Chronic kidney disease, stage 3 (moderate) (principal); I95.9 Hypotension, unspecified
CPT/HCPCS: 36415; 80048; 81001; 82533; 85027; 85652

== ENCOUNTER → 2017-12-12 | Outpatient (CLI) | payer MEDICARE, OTHER ==
[2017-12-12 13:29] LABS: ABSOLUTE BASOPHILS # (AUTO) 0.1 10^3/uL (0.0-0.2); ABSOLUTE EOSINOPHILS # (AUTO) 0.5 10^3/uL (0.0-0.6); ABSOLUTE LYMPHOCYTES (AUTO) 1.6 10^3/uL (0.5-4.7); ABSOLUTE MONOCYTES (AUTO) 0.4 10^3/uL (0.1-1.4); ABSOLUTE NEUT (AUTO) 4.5 10^3/uL (1.7-8.2); HEMATOCRIT 42.6 % (36.0-47.0); HEMOGLOBIN 14.2 g/dL (12.0-15.5); LYMPHOCYTES % (AUTO) 22.4 % (13-45); MEAN CORPUSCULAR HGB CONC 33.4 g/dL (32.0-36.0); MEAN CORPUSCULAR VOLUME 96 fl (80-97); MONOCYTES % (AUTO) 5.4 % (3-13); PLATELET COUNT 301 10^3/uL (150-450); RED BLOOD COUNT 4.44 10^6/uL (3.72-5.28); RED CELL DISTRIBUTION WIDTH 13.6 % (11.5-14.0); SEGMENTED NEUTROPHILS % (AUTO) 64.2 % (42-78); TOTAL CELLS COUNTED % (AUTO) 100 %; WHITE BLOOD COUNT 7.1 10^3/uL (4.0-10.5)
[2017-12-12 13:54] LABS: ANION GAP 12 (5-19); BLOOD UREA NITROGEN 17 mg/dL (7-20); CALCIUM 9.7 mg/dL (8.4-10.2); CARBON DIOXIDE 28 mmol/L (22-30); CHLORIDE 108 mmol/L (98-107); GLUCOSE 82 mg/dL (75-110); POTASSIUM 4.5 mmol/L (3.6-5.0); SODIUM 147.6 mmol/L (137-145)
[2017-12-12 14:19] LABS: PROTHROMBIN TIME 12.6 SEC (11.4-15.4)
[2017-12-12 14:20] LABS: PARTIAL THROMBOPLASTIN TIME 31.1 SEC (23.5-35.8)
== END ==
LOC: OD 12:10
PROVIDERS: ATTEND Internal Medicine Critical Care Medicine
DX: J45.901 Unspecified asthma with (acute) exacerbation (principal); J44.9 Chronic obstructive pulmonary disease, unspecified; R91.8 Other nonspecific abnormal finding of lung field; R05 Cough; R06.09 Other forms of dyspnea; Z92.21 Personal history of antineoplastic chemotherapy; Z92.3 Personal history of irradiation; Z80.9 Family history of malignant neoplasm, unspecified
CPT/HCPCS: 36415; 80048; 85025; 85610; 85730

== ENCOUNTER 2017-12-13 06:39 | Day surgery (SDC) | payer MEDICARE, OTHER ==
[2017-12-13] MEDS ORDERED: LIDOCAINE 2% INJ (20 MG/ML) 20 ML MDV ONE (07:23)
[2017-12-13] MEDS ORDERED: LIDOCAINE 2% JELLY 30 ML TUBE ONE (07:23)
[2017-12-13] MEDS ORDERED: NALOXONE HCL INJ/PF 0.4 MG/1 ML SDV ONE (07:24)
[2017-12-13] MEDS ORDERED: EPINEPHRINE INJ/PF 1 MG/1 ML AMPULE ONE (07:24)
[2017-12-13] MEDS ORDERED: EPINEPHRINE INJ 1 MG/10 ML DISP.SYRIN ONE (07:25)
[2017-12-13] MEDS ORDERED: FLUMAZENIL INJ 0.5 MG/5 ML VIAL ONE (07:25)
[2017-12-13] MEDS: MIDAZOLAM 2 MG/2 ML INJ ONE ×14 (08:53→09:17)
[2017-12-13] MEDS: FENTANYL CITRATE INJ/PF 100 MCG/2 ML AMPUL ONE ×3 (09:04→09:15)
--- NOTE | 2017-12-13 10:24 | OPERATIVE REPORT E ---
Operative Report NAME: RAMSEY MYERS : 1970 AGE: 47Y DATE OF SURGERY: 12/13/2017 ROOM: BRIEF HISTORY: The patient is a 47-year-old female who came in with severe coughing refractory to optimal antihistamine and asthma therapy, worsening over the last 2-3 months by 40%, associated with hemoptysis today with a past medical history of non-Hodgkin's lymphoma with vocal cord tumors status post removal of the vocal cord tumors and adenectomy in the right neck, status post chemotherapy and status post radiation treatment. The patient underwent flexible bronchoscopy PROCEDURES: 1. Flexible bronchoscopy. 2. Bronchial washing. 3. Possible biopsy. SURGEON: CHERELLE CUNNINGHAM M.D. INDICATION: Hemoptysis, refractory severe cough. BLOOD LOSS: None. ANESTHESIA: Topical anesthesia using 2% lidocaine solution and 1% lidocaine solution. SEDATION: Conscious sedation using Versed IV and amphetamine IV. DESCRIPTION OF PROCEDURE: Consent was obtained from the patient. The patient was connected to the monitor worker, pulse oximetry respiratory monitor, blood pressure monitor, and oxygen saturation monitor. The patient verbalized understanding of the indications and risks and complications of the procedure. Total of 2% lidocaine solution 5 mL was given via nebulizer and 2% lidocaine solution 3 mL was given via atomizer and applied to the oropharyngeal area. Versed was given at increments of 0.5 mg to a total dose of 6.5 mg. Amphetamine was given at increments of 25 mcg to a total dose of 75 mg. Lidocaine 2% solution was used to a total dose of 16 mL. Flexible bronchoscope was inserted through the mouth and 1% lidocaine solution was administered topically as the flexible bronchoscope was advanced. Oropharyngeal area and vocal cords appeared normal. There were no lesions noted. Trachea appeared normal. Renetta appeared to be in the midline and sharp. Right and left mainstem bronchi appeared normal. Right upper lobe bronchi and right middle lobe bronchi and right lower lobe bronchi appeared normal. Left upper lobe bronchi and the left lower bronchi appeared normal. There were no endobronchial lesions noted. The patient tolerated the procedure. Bronchial washing will be sent for cytology, fungal, bacteria, and AFB cultures. Patient is instructed for pulmonary clinic followup in 1 week. DICTATING PHYSICIAN: CHERELLE CUNNINGHAM M.D. [id number] PHY#: [id number] ID: [id number] JOB#: [id number] ACCT: [id number] cc:CHERELLE CUNNINGHAM M.D. > SUHAS
[2017-12-13 10:48] VITALS: BP 99/69
== END 2017-12-13 10:40 | disposition home or self-care (01) ==
LOC: END 06:39
PROVIDERS: ATTEND Internal Medicine Critical Care Medicine
DX: R04.2 Hemoptysis (principal); R91.8 Other nonspecific abnormal finding of lung field; I31.9 Disease of pericardium, unspecified; E55.9 Vitamin D deficiency, unspecified; R06.09 Other forms of dyspnea; J43.9 Emphysema, unspecified; G47.30 Sleep apnea, unspecified; Z88.2 Allergy status to sulfonamides; Z79.51 Long term (current) use of inhaled steroids; Z79.899 Other long term (current) drug therapy; Z85.72 Personal history of non-Hodgkin lymphomas
CPT/HCPCS: 31624; 87070 ×2; 87205; 87206; 87116; 87101; 87015; 87486; 88104 ×2; 88305 ×2; J2250; J3490; J3010; J0171; J2310

== ENCOUNTER → 2017-12-26 | Outpatient (CLI) | payer MEDICARE, OTHER ==
[2017-12-26 12:20] LABS: ANION GAP 11 (5-19); BLOOD UREA NITROGEN 16 mg/dL (7-20); CALCIUM 9.5 mg/dL (8.4-10.2); CARBON DIOXIDE 27 mmol/L (22-30); CHLORIDE 109 mmol/L (98-107); GLUCOSE 94 mg/dL (75-110); POTASSIUM 5.3 mmol/L (3.6-5.0); SODIUM 146.8 mmol/L (137-145)
== END ==
LOC: OD 10:44
PROVIDERS: ATTEND Internal Medicine Nephrology
DX: I12.9 Hypertensive chronic kidney disease with stage 1 through stage 4 chronic kidney disease, or unspecified chronic kidney disease (principal); N18.2 Chronic kidney disease, stage 2 (mild)
CPT/HCPCS: 36415; 80048

== ENCOUNTER → 2018-01-04 | Outpatient (CLI) | payer MEDICARE, OTHER ==
--- NOTE | 2018-01-04 15:32 | RADIOLOGY REPORT (SQ) ---
EXAM DESCRIPTION: U/S RETROPERITON LTD COMPLETED DATE/TIME: 01/04/2018 3:08 pm REASON FOR STUDY: CHRONIC KIDNEY DISEASE, STAGE 2 (MILD) N18.2 CHRONIC KIDNEY DISEASE, STAGE 2 (MIL D) R10.9 UNSPECIFIED ABDOMINAL PAIN COMPARISON: None. TECHNIQUE: Dynamic and static grayscale images acquired of the kidneys and bladder and recorded on P ACS. Additional selected color Doppler and spectral images recorded. LIMITATIONS: None. FINDINGS: RIGHT KIDNEY: Normal size, 10.8 x 3.6 x 5.8 cm. Normal echogenicity. No solid or susp icious masses. No hydronephrosis. No calcifications. LEFT KIDNEY: Normal size, 10.6 x 5 x 5.2 cm. Normal echogenicity. No solid or suspicious masses. No hydronephrosis. No calcifications. BLADDER: Bladder was not filled. OTHER FINDINGS: No other significant finding. IMPRESSION: Normal kidneys. The bladder could not be evaluated. TECHNICAL DOCUMENTATION: JOB ID: [id number] [employer]- All Rights Reserved Reading location - IP/workstation name: [email or web address]
== END ==
LOC: RAD 14:36
PROVIDERS: ATTEND Internal Medicine Nephrology
DX: N18.2 Chronic kidney disease, stage 2 (mild) (principal); R10.9 Unspecified abdominal pain
CPT/HCPCS: 76775

== ENCOUNTER → 2018-05-04 | Outpatient (CLI) | payer MEDICARE, OTHER ==
[2018-05-04 12:18] LABS: HEMATOCRIT 42.1 % (36.0-47.0); HEMOGLOBIN 14.2 g/dL (12.0-15.5); MEAN CORPUSCULAR HEMOGLOBIN 32.3 pg (27.0-33.4); MEAN CORPUSCULAR HGB CONC 33.6 g/dL (32.0-36.0); MEAN CORPUSCULAR VOLUME 96 fl (80-97); PLATELET COUNT 388 10^3/uL (150-450); RED BLOOD COUNT 4.39 10^6/uL (3.72-5.28); RED CELL DISTRIBUTION WIDTH 12.8 % (11.5-14.0); WHITE BLOOD COUNT 8.3 10^3/uL (4.0-10.5)
[2018-05-04 12:23] LABS: APPEARANCE,URINE SLIGHTLY-CLOUDY; BILIRUBIN,URINE NEGATIVE (NEGATIVE); COLOR,URINE YELLOW; GLUCOSE, URINE NEGATIVE (NEGATIVE); KETONES,URINE NEGATIVE (NEGATIVE); LEUKOCYTE ESTERASE,URINE SMALL (NEGATIVE); NITRITE,URINE NEGATIVE (NEGATIVE); PROTEIN,URINE NEGATIVE (NEGATIVE); UROBILINOGEN,URINE NEGATIVE mg/dL (<2.0)
[2018-05-04 12:40] LABS: ANION GAP 10 (5-19); BLOOD UREA NITROGEN 18 mg/dL (7-20); CALCIUM 8.8 mg/dL (8.4-10.2); CARBON DIOXIDE 26 mmol/L (22-30); CHLORIDE 107 mmol/L (98-107); GLUCOSE 92 mg/dL (75-110); POTASSIUM 5.2 mmol/L (3.6-5.0); SODIUM 142.7 mmol/L (137-145)
== END ==
LOC: OD 11:25
PROVIDERS: ATTEND Internal Medicine Nephrology
DX: N18.2 Chronic kidney disease, stage 2 (mild) (principal)
CPT/HCPCS: 36415; 80048; 81001; 85027

== ENCOUNTER → 2019-07-17 | Outpatient (CLI) | payer MEDICARE, OTHER ==
--- NOTE | 2019-07-17 16:06 | RADIOLOGY REPORT (SQ) ---
EXAM DESCRIPTION: CHEST 2 VIEWS COMPLETED DATE/TIME: 07/17/2019 3:58 pm REASON FOR STUDY: R06.2 WHEEZING COMPARISON: 11/13/2017. EXAM PARAMETERS: NUMBER OF VIEWS: two views TECHNIQUE: Digital Frontal and Lateral radiographic views of the chest acquired. RADIATION DOSE: NA LIMITATIONS: none FINDINGS: LUNGS AND PLEURA: No opacities, masses or pneumothorax. No pleural effusion. MEDIASTINUM AND HILAR STRUCTURES: No masses or contour abnormalities. HEART AND VASCULAR STRUCTURES: Heart normal size. No evidence for failure. BONES: No acute findings. HARDWARE: None in the chest. OTHER: No other significant finding. IMPRESSION: NO ACUTE RADIOGRAPHIC FINDING IN THE CHEST. TECHNICAL DOCUMENTATION: JOB ID: [id number] [employer]- All Rights Reserved Reading location - IP/workstation name: [email or web address]
[2019-07-17 16:39] LABS: ABSOLUTE BASOPHILS # (AUTO) 0.1 10^3/uL (0.0-0.2); ABSOLUTE EOSINOPHILS # (AUTO) 0.5 10^3/uL (0.0-0.6); ABSOLUTE LYMPHOCYTES (AUTO) 1.4 10^3/uL (0.5-4.7); ABSOLUTE MONOCYTES (AUTO) 0.7 10^3/uL (0.1-1.4); ABSOLUTE NEUT (AUTO) 9.2 10^3/uL (1.7-8.2); BASOPHILS % (AUTO) 0.8 % (0-2); EOSINOPHILS % (AUTO) 4.6 % (0-6); HEMATOCRIT 45.7 % (36.0-47.0); HEMOGLOBIN 15.4 g/dL (12.0-15.5); LYMPHOCYTES % (AUTO) 11.5 % (13-45); MEAN CORPUSCULAR HEMOGLOBIN 32.6 pg (27.0-33.4); MEAN CORPUSCULAR HGB CONC 33.8 g/dL (32.0-36.0); MEAN CORPUSCULAR VOLUME 96 fl (80-97); MONOCYTES % (AUTO) 5.9 % (3-13); PLATELET COUNT 254 10^3/uL (150-450); RED BLOOD COUNT 4.74 10^6/uL (3.72-5.28); RED CELL DISTRIBUTION WIDTH 12.6 % (11.5-14.0); SEGMENTED NEUTROPHILS % (AUTO) 77.2 % (42-78); TOTAL CELLS COUNTED % (AUTO) 100 %; WHITE BLOOD COUNT 11.9 10^3/uL (4.0-10.5)
[2019-07-17 17:07] LABS: ALBUMIN 4.4 g/dL (3.5-5.0); ALKALINE PHOSPHATASE 71 U/L (38-126); ANION GAP 12 (5-19); ASPARTATE AMINO TRANSFERASE 17 U/L (14-36); BILIRUBIN,DIRECT 0.2 mg/dL (0.0-0.4); BILIRUBIN,TOTAL 0.5 mg/dL (0.2-1.3); BLOOD UREA NITROGEN 12 mg/dL (7-20); CALCIUM 9.3 mg/dL (8.4-10.2); CARBON DIOXIDE 26 mmol/L (22-30); CHLORIDE 103 mmol/L (98-107); GLUCOSE 100 mg/dL (75-110); POTASSIUM 3.7 mmol/L (3.6-5.0); TOTAL PROTEIN 7.2 g/dL (6.3-8.2)
== END ==
LOC: RAD 15:45
PROVIDERS: ATTEND Family Medicine
DX: R06.2 Wheezing (principal); R05 Cough
CPT/HCPCS: 36415; 71046; 80053; 85025